=== PATIENT | female | born 1960 | race Caucasian/White ===

== ENCOUNTER 2016-08-26 15:34 | Emergency (ER) | payer OTHER ==
[~2016-08-26] VITALS: Ht 157.5 cm; Wt 61.2 kg
[~2016-08-26 15:34] MED LIST: NEXIUM 40MG40 MG PO
--- NOTE | 2016-08-26 17:01 | ED UPPER/LOWER EXTREMITY COMPL ---
History of Present Illness General Chief Complaint: Lower Extremity Problems Stated Complaint: RT FOOT SWELLING, NO KNOWN INJ. Source: patient Exam Limitations: no limitations Vital Signs & Intake/Output Vital Signs & Intake/Output Vital Signs Date Time Temp Pulse Resp B/P B/P Pulse O2 O2 Flow FiO2 Mean Ox Delivery Rate 08/26 1832 97.6 86 18 142/80 95 Room Air 08/26 1541 97.7 99 16 169/92 92 Room Air Allergies Coded Allergies: Quinolones (HIVES 08/26/16) Sulfa (Sulfonamide Antibiotics) (SKIN BURNING 08/26/16) Reconcile Medications Albuterol Sulfate (Proair Hfa) 90 MCG HFA.AER.AD 2 PUF INH 4XDAILY PRN COPD ( Reported) Budesonide (Pulmicort) 0.25 MG/2 ML AMPUL.NEB 1 Vial INH/WENDY BID COPD ( Reported) by nebulizer Triage Note: PT STATES HER RIGHT FOOT AND ANKLE STARTED TO SWELL ABOUT 1 WEEK AGO. PT DENIES INJURIES ANKLE WARM AND RED. Triage Nurses Notes Reviewed? yes Onset: Gradual Duration: getting worse Timing: recent history Severity: moderate Severity Numbers: 5 HPI: Patient is a 56-year-old female with past medical history of COPD, LUPUS - (SLE) in remission who presents emergency room with a 6 day history of gradual onset of right below the knee to the toes of swelling. Patient denies any mechanism of injury or trauma or erythema warmth or redness to the region. Denies any fever chills shortness of breath cough or hemoptysis chest pain. Denies any exhaustion is estrogen use or recent travel or recent surgery. DENIES any history of DVT or PE (BEBO FRANCISCO) Past History Travel History Traveled to [place] past 21 day No Medical History Any Pertinent Medical History? see below for history Neurological: LUPUS Respiratory: COPD Gastrointestinal: ACID REFLUX Surgical History Surgical History: non-contributory Psychosocial History What is your primary language Romansh Tobacco Use: Current Daily Use Daily Tobacco Use Amount/Type: => 5 Cigarettes daily ETOH Use: denies use Illicit Drug Use: denies illicit drug use Family History Hx Contributory? No (BEBO FRANCISCO) Review of Systems Review of Systems Constitutional: Reports: no symptoms. EENTM: Reports: no symptoms. Respiratory: Reports: no symptoms. Cardiovascular: Reports: see HPI, peripheral edema. Gastrointestinal/Abdominal: Reports: no symptoms. Genitourinary: Reports: no symptoms. Musculoskeletal: Reports: see HPI. Skin: Reports: no symptoms. Neurological/Psychological: Reports: no symptoms. Hematologic/Endocrine: Reports: no symptoms. Immunological: Reports: no symptoms. All Other Systems: Reviewed and Negative (BEBO FRANCISCO) Physical Exam Physical Exam General Appearance: no apparent distress, alert, comfortable Neurologic/Tendon: normal sensation, normal motor functions, normal tendon functions, responds to pain, no evidence tendon injury, no pulse deficit Skin: intact, normal color, warm/dry Comments: Well-developed well-nourished person in no acute distress HEENT: Normal EENT exam. Neck: Supple, no lymphadenopathy, normal range of motion without pain or tenderness Back: Nontender, no CVA tenderness. Cardiovascular: Regular rate and rhythms no murmurs rubs or gallops, normal JVP Respiratory: Chest nontender. No respiratory distress.breath sounds clear to auscultation bilaterally Abdomen: Soft, nontender nondistended, no appreciable organomegaly. Normal bowel sounds. No ascites Extremity: Right below the knees to the toes +2 edema no calf tenderness to palpation, normal and equal pulses. Right ankle no erythema no warmth no tenderness full active range of motion noted Neuro: Alert oriented x3, motor sensory normal, Skin: No appreciable rash on exposed skin, skin is warm and dry. Psych: Mood and affect is normal, memory and judgment is normal. (BEBO FRANCISCO) Progress Differential Diagnosis: arterial insufficiency, cellulitis, CHF, compartment syndrome, contusion, dislocation, DVT, fracture, gout, septic arthritis, sprain, tendon injury, LUPUS NEPHRITIS Plan of Care: Orders Procedure Date/time Status Durable Medical Equipment 08/26 183 Active URINALYSIS 08/26 1710 Complete COMPREHENSIVE METABOLIC PANEL 08/26 1709 Complete CBC WITHOUT DIFFERENTIAL 08/26 1709 Complete Laboratory Tests 08/26/16 172: Urine Color YEL, Urine Clarity CLEAR, Urine pH 6.0, Ur Specific [place] 1.010, Urine Protein TRACE H, Urine Ketones NEG, Urine Nitrite NEG, Urine Bilirubin NEG, Urine Urobilinogen 0.2, Ur Leukocyte Esterase TRACE H, Ur Microscopic SEDIMENT EXAMINED, Urine RBC RARE, Urine WBC 1-3 H, Ur Epithelial Cells FEW, Urine Bacteria FEW H, Urine Hemoglobin TRACE-LYSED, Urine Glucose NEG 05/19/17 1717: Anion Gap 9, Estimated GFR > 60, BUN/Creatinine Ratio 14.3, Glucose 84, Calcium 9.3, Total Bilirubin 0.7, AST 29, ALT 34, Alkaline Phosphatase 77, Total Protein 7.2, Albumin 4.1, Globulin 3.1, Albumin/Globulin Ratio 1.3, CBC w Diff NO MAN DIFF REQ, RBC 5.40, MCV 92.4, MCH 30.7, RDW 14.4, MPV 10.6 H, Gran % 64.6, Lymphocytes % 25.1, Monocytes % 8.9, Eosinophils % 1.0, Basophils % 0.4, Absolute Granulocytes 3.9, Absolute Lymphocytes 1.5, Absolute Monocytes 0.5, Absolute Eosinophils 0.1, Absolute Basophils 0, PUBS MCHC 33.2 At this time there is no physical exam findings for concerns of cellulitis or infection. Ultrasound was unremarkable for DVT. No proteinuria kidney function was within normal limits in which there are no concerns of nephrotic syndrome. Humberto wrap was applied to right lower leg preempt post neurovascular was intact. Patient was given copies of images and blood work. Patient denies any cardiovascular symptoms at this time. Patient was strongly advised to follow-up with discharged INSTRUCTIONS AND the plan and she will comply (BRANDEE MCKEE,BEBO) Diagnostic Imaging: Viewed by Me: Ultrasound. Radiology Impression: no acute abnormality, no fracture Comments: PATIENT: CLARA FIGUEROA PRESENT AGE: 56 PATIENT ACCOUNT NO: [id number] : 60 LOCATION: [facility] ORDERING PHYSICIAN: BEBO MCKEE SERVICE DATE: 08/26/16 EXAM TYPE: US - US-UNILATERAL VENOUS DOPPLER EXAMINATION: US TRIPLEX LOWER EXTREMITY, RIGHT CLINICAL INFORMATION: Right lower extremity edema and swelling. COMPARISON: None. TECHNIQUE: Color-flow triplex imaging with spectral analysis and compression Doppler were performed on the right lower extremity. FINDINGS: Respiratory variation, normal compression and augmented flow are noted throughout the left lower extremity. The visualized common femoral vein, proximal greater saphenous vein, femoral vein, profunda femoral vein, popliteal vein and visualized mid calf venous segments show no evidence of deep venous thrombosis. There is a 2.8 x 0.7 x 1.9 cm right popliteal fossa Ramírez's cyst. IMPRESSION: 1. No ultrasound evidence of deep venous thrombosis involving the lower extremity. 2. A right popliteal fossa Ramírez's cyst is seen. (BEBO FRANCISCO) Departure Departure Disposition: HOME OR SELF CARE Condition: Stable Clinical Impression Primary Impression: Leg edema, right Referrals: UNKNOWN (PCP/Family) Additional Instructions: As discussed begin to elevate THE foot for swelling. Begin to use the Humberto wrap provided to the emergency room for swelling. If symptoms worsen or if YOU develop any new concerning symptom return to the emergency room. Please provide your primary care doctor with copies of ultrasound and blood work and if symptoms still continue follow-up with your primary care doctor on Monday. Departure Forms: Customer Survey General Discharge Information (BEBO FRANCISCO) PA/MATERIALS MANAGEMENT SUPERVISOR Co-Sign Statement Statement: ED Attending supervision documentation- [] I saw and evaluated the patient. I have also reviewed all the pertinent lab results and diagnostic results. I agree with the findings and the plan of care as documented in the PA's/MATERIALS MANAGEMENT SUPERVISOR's documentation. [X] I have reviewed the ED Record and agree with the PA's/MATERIALS MANAGEMENT SUPERVISOR's documentation. [] Additions or exceptions (if any) to the PAs/MATERIALS MANAGEMENT SUPERVISOR's note and plan are summarized below: [] (MARCELLA CALLAHAN DO)
[2016-08-26] MEDS ORDERED: PULMICORT0.25 MG/3 INH/SOL (17:14)
[2016-08-26] MEDS ORDERED: PROAIR HFA8.5 GM INH (17:14)
--- NOTE | 2016-08-26 17:14 | ULTRASOUND REPORT ---
EXAMINATION: US TRIPLEX LOWER EXTREMITY, RIGHT CLINICAL INFORMATION: Right lower extremity edema and swelling. COMPARISON: None. TECHNIQUE: Color-flow triplex imaging with spectral analysis and compression Doppler were performed on the right lower extremity. FINDINGS: Respiratory variation, normal compression and augmented flow are noted throughout the left lower extremity. The visualized common femoral vein, proximal greater saphenous vein, femoral vein, profunda femoral vein, popliteal vein and visualized mid calf venous segments show no evidence of deep venous thrombosis. There is a 2.8 x 0.7 x 1.9 cm right popliteal fossa Ramírez's cyst. IMPRESSION: 1. No ultrasound evidence of deep venous thrombosis involving the lower extremity. 2. A right popliteal fossa Ramírez's cyst is seen.
[2016-08-26 17:40] LABS: ABSOLUTE BASOPHIL COUNT 0 /CUMM (0.0-0.2); ABSOLUTE EOSINOPHIL COUNT 0.1 /CUMM (0.0-0.7); ABSOLUTE GRANULOCYTE CT 3.9 /CUMM (1.4-6.5); ABSOLUTE LYMPH COUNT 1.5 /CUMM (1.2-3.4); ABSOLUTE MONOCYTE COUNT 0.5 /CUMM (0.10-0.60); BASOPHIL % 0.4 % (0.0-2.0); GRANULOCYTE % 64.6 % (42.2-75.2); HEMATOCRIT 49.9 % (37-47); MEAN CORPUSCULAR HGB 30.7 PG (27.0-31.0); MEAN CORPUSCULAR HGB CONC 33.2 G/DL (33.0-37.0); MEAN CORPUSCULAR VOLUME 92.4 FL (81.0-99.0); MEAN PLATELET VOLUME 10.6 FL (7.4-10.4); PLATELET COUNT 155 /CUMM (130-400); RBC DISTRIBUTION WIDTH 14.4 % (11.5-14.5)
[2016-08-26 18:32] VITALS: BP 142/80
== END 2016-08-26 18:52 ==
LOC: ERH 15:34
PROVIDERS: Physician Assistant
DX: R60.0 Localized edema (principal)
CPT/HCPCS: 81001

== ENCOUNTER 2016-10-01 18:27 | Inpatient (IN) | payer OTHER ==
[~2016-10-01] VITALS: Ht 157.5 cm; Wt 63.6 kg
[~2016-10-01 18:27] MED LIST changes: +PROAIR HFA8.5 GM INH; +PULMICORT0.25 MG/3 INH/SOL
--- NOTE | 2016-10-01 18:34 | NUR ---
C/O BILATERAL LOWER LEG REDNESS AND SWELLING X 3 WEEKS, SEEN HERE 2 WEEKS AGO, NEGATIVE US. FOLLOWED UP WITH PMD, WAS PUT ON KEFLEX. (SECOND COURSE) STATES LEGS FEEL WORSE. ALSO HAS A RUPTURED DEMARCO'S CYST (R KNEE).
--- NOTE | 2016-10-01 18:36 | NUR ---
C/O BILATERAL LOWER LEG REDNESS AND SWELLING X 3 WEEKS, SEEN HERE 2 WEEKS AGO, NEGATIVE US. FOLLOWED UP WITH PMD, WAS PUT ON KEFLEX. STATES LEGS FEEL WORSE. 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 PMH: COPD,
--- NOTE | 2016-10-01 18:50 | NUR ---
PT TO ROOM 6 .PT REFUSED TO CAHNGE INTO GOWN STATES SHE JUST WANTS HER LEGS CHECKED
[2016-10-01] MEDS ORDERED: ALPRAZOLAM0.25 M1 PO (19:21)
[2016-10-01] MEDS ORDERED: CEPHALEXIN500 M3 PO (19:21)
[2016-10-01] MEDS ORDERED: SPIRIVA RESPIMAT4 GM INH (19:21)
[2016-10-01] MEDS ORDERED: IPRATROPIU0.2 MG/1 M INH/SOL (19:22)
[2016-10-01] MEDS ORDERED: BUPROPION HCL150 M4 PO (19:22)
--- NOTE | 2016-10-01 19:24 | ED GENERAL ADULT ---
History of Present Illness General Chief Complaint: Lower Extremity Problems Stated Complaint: ?LLE CELLULITIS Source: patient, family Exam Limitations: no limitations Vital Signs & Intake/Output Vital Signs & Intake/Output Vital Signs Date Time Temp Pulse Resp B/P B/P Pulse O2 O2 Flow FiO2 Mean Ox Delivery Rate 10/01 2014 99 10/01 1953 98.4 106 20 142/92 85 Room Air 10/01 1837 98.2 123 22 168/94 88 Room Air Allergies Coded Allergies: Quinolones (HIVES 08/26/16) Sulfa (Sulfonamide Antibiotics) (SKIN BURNING 08/26/16) Reconcile Medications Albuterol Sulfate (Proair Hfa) 90 MCG HFA.AER.AD 2 PUF INH 4XDAILY PRN COPD ( Reported) Alprazolam 0.25 MG TABLET 1 TAB PO PRN ANXIETY (Reported) Budesonide (Pulmicort) 0.25 MG/2 ML AMPUL.NEB 1 Vial INH/WENDY PRN COPD ( Reported) by nebulizer Bupropion HCl (Bupropion HCl Sr) (Unknown Strength) TABLET.ER (Unknown Dose) UNKNOWN (Reported) Cephalexin 500 MG CAPSULE 1 CAP PO TID ANTIBIOTIC (Reported) Ipratropium Isabel 0.2 MG/ML (0.02 %) SOLUTION 1 Vial INH/WENDY PRN COPD ( Reported) Tiotropium Isabel (Spiriva Respimat) (Unknown Strength) MIST.INHAL (Unknown Dose) UNKNOWN (Reported) Triage Note: C/O BILATERAL LOWER LEG REDNESS AND SWELLING X 3 WEEKS, SEEN HERE 2 WEEKS AGO, NEGATIVE US. FOLLOWED UP WITH PMD, WAS PUT ON KEFLEX. STATES LEGS FEEL WORSE. Triage Nurses Notes Reviewed? yes Onset: Gradual Duration: week(s): Timing: recent history Severity: moderate Associated Symptoms: dyspnea HPI: 56yo female with hx of COPD not on home O2, anxiety, and lupus presents to ED c/ o bilateral leg swelling and redness. Patient states leg swelling and redness in right leg has be present x 1 month. She was treated with Keflex x 7 days twice since onset for cellulitis, she last finished the second course last week. She has had two venous ultrasounds of her right leg in the past month with no clots detected. She has a vascular referral however has not be able to see them yet. She has a hx of a ruptured chapman's cyst in the right knee. She has pain in her right knee and lower leg and states both legs feel tight and stiff. She notes swelling of her left lower leg x 3 days without erythema. She also has intermittent dyspnea significantly worse with exersion, she requires 3 pillows to sleep at night. She is a current smoker, 1 pack per day. Associated symptoms include chills, nausea, hematuria last week, dysuria starting today. She denies fevers, chest pain, palpitations, cough, hemoptysis, sore throat, urinary frequency. She was last seen in the ED here in August for right leg swelling, no erythema present at that time. (KAYLA EL PA-C) Past History Travel History Traveled to [place] past 21 day No Medical History Any Pertinent Medical History? see below for history Neurological: LUPUS EENT: NONE Cardiovascular: NONE Respiratory: COPD Gastrointestinal: ACID REFLUX Hepatic: NONE Renal: NONE Musculoskeletal: NONE Psychiatric: anxiety Endocrine: NONE Surgical History Surgical History: non-contributory Psychosocial History What is your primary language Syriac Tobacco Use: Current Daily Use Daily Tobacco Use Amount/Type: => 5 Cigarettes daily ETOH Use: denies use Family History Family History, If Any: BROTHER Relation not specified for: FH: lung cancer Hx Contributory? No (KAYLA EL PA-C) Review of Systems Review of Systems Constitutional: Reports: see HPI. EENTM: Reports: no symptoms. Respiratory: Reports: see HPI. Cardiovascular: Reports: see HPI. GI: Reports: see HPI. Genitourinary: Reports: see HPI. Musculoskeletal: Reports: see HPI. Skin: Reports: see HPI. Neurological/Psychological: Reports: no symptoms. Hematologic/Endocrine: Reports: no symptoms. Immunologic/Allergic: Reports: no symptoms. All Other Systems: Reviewed and Negative (KAYLA EL PA-C) Physical Exam Physical Exam General Appearance: well developed/nourished, no apparent distress, alert, awake Head: atraumatic, normal appearance Eyes: Bilateral: normal appearance, EOMI. Ears, Nose, Throat: hearing grossly normal Neck: normal inspection, supple, full range of motion Respiratory: diminished breath sounds in all lung valero Cardiovascular: tachycardia Gastrointestinal: normal bowel sounds, soft, non-tender Back: normal inspection, normal range of motion, erythematous macular rash on left upper back Extremities: normal capillary refill, calf tenderness, 3+ pitting edema right lower leg with warmth and erythema extending from right knee to right toes, tenderness with palpation, 1-2+ pitting edema of left lower leg, no erythema, no warmth Neurologic/Psych: awake, alert, oriented x 3, sensation intact Skin: intact, erathematous macular rash on left upper back, erythema, swelling, warmth, and tenderness right knee, calf, and foot Core Measures ACS in differential dx? Yes CVA/TIA Diagnosis: No Severe Sepsis Present: No Septic Shock Present: No (NIKKO GUPTA,KAYLA) Progress Differential Diagnoses I considered the following diagnoses in my evaluation of the patient: [DVT, cellulitis, stasis dermatitis, peripheral vascular disease, sepsis, ACS, PE, PNA , COPD exacerbation] Plan of Care: Orders Procedure Date/time Status Regular Diet 10/02 B Active Patient Data 10/01 2130 Active OXYGEN SETUP (GEN) 10/01 2104 Active Saline Lock 10/01 2104 Active Misc Message 10/01 2104 Active ED Holding Orders 10/01 2104 Active Admit to inpatient 10/01 2104 Active Vital Signs 10/01 2104 Active Activity/Ambulation 10/01 2104 Active Code Status 10/01 2104 Active XRY-PORTABLE CHEST XRAY 10/01 2045 Active Add-on Test (ER Only) 10/01 2036 Active EKG 10/02 2031 Active THYROID STIMULATING HORMONE 10/01 2002 Complete TROPONIN LEVEL 10/01 2002 Complete B-TYPE NATRIURETIC PEP (BNP) 10/01 2002 Complete COMPREHENSIVE METABOLIC PANEL 10/01 1950 Complete CBC WITHOUT DIFFERENTIAL 10/01 1950 Complete CULTURE,URINE 10/01 1925 Active URINALYSIS 10/01 192 Complete Intake & Output 10/01 1919 Active Laboratory Tests 10/01/16 2006: CBC w Diff NO MAN DIFF REQ, RBC 5.19, MCV 93.1, MCH 30.3, RDW 14.8 H, MPV 10.5 H, Gran % 70.4, Lymphocytes % 19.8 L, Monocytes % 8.3, Eosinophils % 1.1, Basophils % 0.4, Absolute Granulocytes 4.5, Absolute Lymphocytes 1.3, Absolute Monocytes 0.5, Absolute Eosinophils 0.1, Absolute Basophils 0, PUBS MCHC 32.5 L 10/01/16 2003: Anion Gap 8, Estimated GFR > 60, BUN/Creatinine Ratio 18.9, Glucose 82, Calcium 9.1, Total Bilirubin 0.4, AST 38 H, ALT 49, Alkaline Phosphatase 65, Troponin I < 0.01, Cuc-O-Upnrcovuwgz Pept 949 H, Total Protein 6.5, Albumin 3.6, Globulin 2.9, Albumin/Globulin Ratio 1.2, TSH 2.480 10/01/16 2000: TSH Cancelled 10/01/161939: Urine Color YEL, Urine Clarity CLEAR, Urine pH 6.0, Ur Specific [place] 1.025, Urine Protein 30 H, Urine Ketones NEG, Urine Nitrite NEG, Urine Bilirubin NEG, Urine Urobilinogen 0.2, Ur Leukocyte Esterase NEG, Ur Microscopic SEDIMENT EXAMINED, Urine RBC 1-3, Urine WBC 1-3 H, Ur Epithelial Cells MOD H, Urine Hemoglobin TRACE-INTACT, Urine Glucose NEG Microbiology 10/02 1939 URINE ROUT: Urine Culture - RECD The patient is refusing CXR because she does not want to know the results stating that her brother of lung CA. She was conseled on the reasons why the CXR was ordered for evaluation of her dyspnea, low O2 sats, and diminished breath sounds on exam. 20:25 Patient receiving duoneb treatment, O2 sat 91-92% on 5L via [place]. Patient is not on any home O2. Patient was discussed with Dr. Nova. IV antibiotics initiated for COPD exacerbation and cellulitis with failed outpatient PO abx. Patient now consents to CXR after further counseling. IV Lasix initiated given pedal edema. The patient is not able to lay back due to her dyspnea, must sit leaning forward. Patient will be admitted to telemitry for futher monitoring, continued oxygen therapy, IV antibiotics, repeat EKG and troponin. (KAYLA EL PA-C) Initial ED EKG: significant artifact as patient unable to lay flat due to her dyspnea, tachycardia with regular rhythm, p waves present (KAYLA EL PA-C) Departure Departure Time of Disposition: 2105 Disposition: STILL A PATIENT Condition: Stable Clinical Impression Primary Impression: COPD exacerbation Secondary Impressions: Cellulitis, Dyspnea, Pedal edema Referrals: UNKNOWN (PCP/Family) Departure Forms: Customer Survey General Discharge Information Admission Note Spoke With: MODESTA CASTILLO MD Documentation of Exam: Documentation of any treatments & extenuating circumstances including Concerns Regarding Discharge (functional status, medication knowledge or non-compliance, living conditions, etc.) that warrant an admission rather than observation: [ COPD exacerbation, failed outpaitient treatment of cellulitis, low O2 sat despite O2 therapy, not on home oxygen, will need telemetry monitoring, IV antibiotics, repeak EKG and troponin, premature discharge would be medically unsafe] (KAYLA EL PA-C) PA/DERMATOLOGY PHYSICIAN Co-Sign Statement Statement: ED Attending supervision documentation- [X] I saw and evaluated the patient. I have also reviewed all the pertinent lab results and diagnostic results. I agree with the findings and the plan of care as documented in the PA's/DERMATOLOGY PHYSICIAN's documentation. [X] I have reviewed the ED Record and agree with the PA's/DERMATOLOGY PHYSICIAN's documentation. [] Additions or exceptions (if any) to the PAs/DERMATOLOGY PHYSICIAN's note and plan are summarized below: [COPD or not on home O2 who continues to smoke presents with increasing redness to her right leg. Patient finished a course of Keflex and is currently on her second round. The leg is erythematous, warm to touch and blanches. There is no inguinal adenopathy. There is no tenderness to the erythema. Patient states that both her right and left leg are more swollen than normal. Patient had 2 ultrasounds on her right leg within the past month and both been negative for DVT. Patient also found to be hypoxic. The patient's O2 sats improved with 5 L nasal cannula. Patient's lung sounds are very diminished despite a DuoNeb. At this point the patient will be admitted. Patient being treated for COPD exacerbation as well as possible fluid overload. No evidence of a PE given 2 negative ultrasounds.] (ISRRAEL ABREU,OSWALDO Méndez) Critical Care Note Critical Care Note Critical Care Time: mins: (20) (KAYLA EL PA-C) DVT. Patient also found to be hypoxic. The patient's O2 sats improved with 5 L nasal cannula. Patient's lung sounds are very diminished despite a DuoNeb. At this point the patient will be admitted. Patient being treated for COPD exacerbation as well as possible fluid overload. No evidence of a PE given 2 negative ultrasounds.] (ISRRAEL ABREU,OSWALDO Méndez) Critical Care Note Critical Care Note Critical Care Time: mins: (20) (KAYLA EL PA-C)
--- NOTE | 2016-10-01 19:41 | NUR ---
URINE SENT TO LAB ([facility])
--- NOTE | 2016-10-01 19:43 | NUR ---
LEGS ARE SWOLLEN AND SLIGHTLY REDDENED. NO WEEPING OR DRAINAGE NOTED AT THIS TIME.
--- NOTE | 2016-10-01 19:52 | NUR ---
RESP CALLED FOR TX.
--- NOTE | 2016-10-01 20:05 | NUR ---
BLOOD DRAWN AND SENT TO LAB. SST,LAV,BLUE,FINN
[2016-10-01 20:10] LABS: ABSOLUTE BASOPHIL COUNT 0 /CUMM (0.0-0.2); ABSOLUTE EOSINOPHIL COUNT 0.1 /CUMM (0.0-0.7); ABSOLUTE GRANULOCYTE CT 4.5 /CUMM (1.4-6.5); ABSOLUTE LYMPH COUNT 1.3 /CUMM (1.2-3.4); ABSOLUTE MONOCYTE COUNT 0.5 /CUMM (0.10-0.60); BASOPHIL % 0.4 % (0.0-2.0); EOSINOPHIL % 1.1 % (0-5); GRANULOCYTE % 70.4 % (42.2-75.2); HEMATOCRIT 48.3 % (37-47); MEAN CORPUSCULAR HGB 30.3 PG (27.0-31.0); MEAN CORPUSCULAR HGB CONC 32.5 G/DL (33.0-37.0); MEAN CORPUSCULAR VOLUME 93.1 FL (81.0-99.0); MEAN PLATELET VOLUME 10.5 FL (7.4-10.4); PLATELET COUNT 145 /CUMM (130-400); RBC DISTRIBUTION WIDTH 14.8 % (11.5-14.5); RED BLOOD CELL CT 5.19 /CUMM (4.20-5.40); WHITE BLOOD CELL COUNT 6.4 /CUMM (4.8-10.8)
--- NOTE | 2016-10-01 22:01 | RADIOLOGY REPORT ---
EXAMINATION: XR CHEST PORTABLE CLINICAL INFORMATION: COPD exacerbation. Evaluate for pulmonary pathology. COMPARISON: Multiple priors, most recent available images are from a chest x-ray dated 12/06/2010. TECHNIQUE: Portable frontal view of the chest was obtained. FINDINGS: Bilateral coarse interstitial markings, not significantly changed. No focal airspace consolidation. No pleural effusion or pneumothorax. Stable cardiomediastinal silhouette. No acute osseous abnormality. IMPRESSION: Stable coarse interstitial markings. No focal airspace consolidation.
--- NOTE | 2016-10-01 22:44 | NUR ---
PT ASSIGNED TO #[id number]
[2016-10-02 01:25] VITALS: BP 138/78
--- NOTE | 2016-10-02 02:41 | History & Physical ---
PAUL LINARES 10/02/16 0239: General Information and HPI MD Statement: I have seen and personally examined CLARA FIGUEROA and documented this H&P. The patient is a 56 year old F who presented with a patient stated chief complaint of bilateral lower extremity swelling, shortness of breath. Source of Information: patient Exam Limitations: no limitations History of Present Illness: Ms Figueroa is a 56-year-old woman who was known to be in her usual state of health until 1 month ago. She has a past medical history of COPD(dx'ed 10 yr ago, not on any meds/supp oxygen). She came to [facility] with a chief concern of worsening lower extremity swelling x 1 wk. As per the patient, she started developing swelling in her bilateral lower extremities R>L, increasing redness 1 month; seen her PCP who prescribed her Keflex 7 days with no resolution of symptoms. No associated pain, tingling or numbness, or any discharge. Also reported fever associated with chills, but did not record any temperature. Reported on and off exertional shortness of breath. Also reported decreased activity at work. No chest pain, palpitations, orthopnea or PND. No lightheadedness or dizziness. Reported weight gain in the last few months. 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 Known smoker, 27-cyxa-nldx history, has been trying to quit (currently on bupropion), occasional use of alcohol. Sees RAFI Santos regularly. Has not seen Dr. Man in the last 10 yrs, after the diagnosis of COPD was made. Never had any low dose CT lung screening done recently. Allergies/Medications Allergies: Coded Allergies: Quinolones (HIVES 08/26/16) Sulfa (Sulfonamide Antibiotics) (SKIN BURNING 08/26/16) Home Med list Albuterol Sulfate (Proair Hfa) 90 MCG HFA.AER.AD 2 PUF INH 4XDAILY PRN COPD ( Reported) Alprazolam 0.25 MG TABLET 1 TAB PO PRN ANXIETY (Reported) Budesonide (Pulmicort) 0.25 MG/2 ML AMPUL.NEB 1 Vial INH/WENDY PRN COPD ( Reported) by nebulizer Bupropion HCl (Bupropion HCl Sr) (Unknown Strength) TABLET.ER (Unknown Dose) UNKNOWN (Reported) Cephalexin 500 MG CAPSULE 1 CAP PO TID ANTIBIOTIC (Reported) Ipratropium [place] 0.2 MG/ML (0.02 %) SOLUTION 1 Vial INH/WENDY PRN COPD ( Reported) Tiotropium [place] (Spiriva Respimat) (Unknown Strength) MIST.INHAL (Unknown Dose) UNKNOWN (Reported) Past History Travel History Traveled to [place] past 21 day No Medical History Blood Transfusion Hx: No Neurological: LUPUS EENT: NONE Cardiovascular: NONE Respiratory: COPD Gastrointestinal: ACID REFLUX Hepatic: NONE Renal: NONE Musculoskeletal: NONE Psychiatric: anxiety Endocrine: NONE Isolation History: Standard Surgical History Surgical History: non-contributory Past Family/Social History Family History Relations & Conditions if any BROTHER Relation not specified for: FH: lung cancer Psychosocial History Where do you live? Home Services at Home: None Smoking Status: Current Everyday Smoker ETOH Use: denies use Review of Systems Review of Systems Constitutional: Reports: see HPI, chills, fever. Denies: malaise, weakness. EENTM: Denies: visual changes. Cardiovascular: Reports: peripheral edema. Denies: chest pain, orthopena, palpitations. Respiratory: Denies: cough, orthopnea, short of breath, sputum production. GI: Denies: abdominal pain, melena, nausea, bloody stool. Genitourinary: Denies: discharge. Musculoskeletal: Denies: joint pain. Skin: Reports: change in skin color, erythema. Denies: lesions. Neurological/Psychological: Denies: anxiety, emotional problems. Hematologic/Endocrine: Denies: bruising, polyuria. Exam & Diagnostic Data Last 24 Hrs of Vital Signs/I&O Vital Signs Date Time Temp Pulse Resp B/P B/P Pulse O2 O2 Flow FiO2 Mean Ox Delivery Rate 10/02 0125 98.7 103 20 138/78 90 Nasal 3.0L Cannula 10/02 0019 93 Nasal 3.0L Cannula 10/01 2246 98.0 98 20 135/87 96 Nasal 3.0L Cannula 10/01 2014 99 10/01 1953 98.4 106 20 142/92 85 Room Air 10/01 1838 98.2 123 22 168/94 88 Room Air Intake & Output 10/02 0800 10/02 0000 10/01 1600 Intake Total Output Total Balance Patient 140 lb 140 lb Weight Weight Reported by Patient Reported by Patient Measurement Method Physical Exam General Appearance Alert, Oriented X3, Cooperative, No Acute Distress Skin No Breakdown Skin Temp/Moisture Exam: Warm/Dry Sepsis Skin Exam (color): Normal for Ethnicity HEENT Atraumatic, PERRLA, EOMI, Mucous Membr. moist/pink Neck Supple, No JVD, No thryomegaly, +2 Carotid Pulse wo Bruit Lymphatic Cervical nl Cardiovascular Regular Rate, Normal S1, Normal S2 Lungs decreased air entry bilaterally Abdomen Normal Bowel Sounds, Soft, No Tenderness, No Hepatospenomegaly Neurological Normal Speech, Strength at 5/5 X4 Ext, Normal Tone, Sensation Intact, Cranial Nerves 3-12 NL, Reflexes 2+ Extremities No Clubbing, No Cyanosis, pedal edema 2 + bilaterally Right lower extremity - erythema extending from the tip of toes to the knee. No ulcers Left lower extremity- erytheama extending from tips of toes to the ankle. No ulcers. Vascular Normal Pulses, Pulses Symmetrical Sepsis Peripheral Pulse Location: Dorsalis Pedis Sepsis Peripheral Pulse Exam: Normal Body Front and Back (Adult) 1) Bilateral pitting edema 2+ #1 right lower extremity-erythema extending from tips of toes up to the knee. No ulcers. #2 left lower extremity-erythema extending from toes up to ankle. No ulcers. Last 24 Hrs of Labs/Silverio: Laboratory Tests 10/01/162005: CBC w Diff NO MAN DIFF REQ, RBC 5.19, MCV 93.1, MCH 30.3, RDW 14.8 H, MPV 10.5 H, Gran % 70.4, Lymphocytes % 19.8 L, Monocytes % 8.3, Eosinophils % 1.1, Basophils % 0.4, Absolute Granulocytes 4.5, Absolute Lymphocytes 1.3, Absolute Monocytes 0.5, Absolute Eosinophils 0.1, Absolute Basophils 0, PUBS MCHC 32.5 L 10/01/16 2003: Anion Gap 8, Estimated GFR > 60, BUN/Creatinine Ratio 18.9, Glucose 82, Calcium 9.1, Total Bilirubin 0.4, AST 38 H, ALT 49, Alkaline Phosphatase 65, Troponin I < 0.01, Huk-L-Qovonhpifzb Pept 949 H, Total Protein 6.5, Albumin 3.6, Globulin 2.9, Albumin/Globulin Ratio 1.2, TSH 2.480 10/01/161999: TSH Cancelled 10/01/160: Urine Color YEL, Urine Clarity CLEAR, Urine pH 6.0, Ur Specific [place] 1.025, Urine Protein 30 H, Urine Ketones NEG, Urine Nitrite NEG, Urine Bilirubin NEG, Urine Urobilinogen 0.2, Ur Leukocyte Esterase NEG, Ur Microscopic SEDIMENT EXAMINED, Urine RBC 1-3, Urine WBC 1-3 H, Ur Epithelial Cells MOD H, Urine Hemoglobin TRACE-INTACT, Urine Glucose NEG Microbiology 10/02 226 LOWER RESP: Respiratory Culture - ORD 10/02 226 LOWER RESP: Gram Stain - ORD 10/02 226 BLOOD: Blood Culture - ORD 10/02 226 BLOOD: Blood Culture - ORD 10/02 1939 URINE ROUT: Urine Culture - RECD Diagnostic Data EKG Results Normal sinus rhythm, tachycardia, normal axis, no ST-T wave changes. CXR Results Stable coarse interstitial markings. No focal airspace consolidation. Assessment/Plan Assessment: She is a middle-aged woman, with [id number] smoking history and COPD is being evaluated for worsening lower extremity edema, erythema and shortness of breath likely due to CHF. At the time of admission, vitals-temperature 98.2, pulse rate 123 (improved to 98), blood pressure 168/94 (improved to 138/78), 88% on room air (at the time of arrival in the ED, which improved to 90% on 3 L oxygen). Lab findings indicated no leukocytosis, hemoglobin 15.7, platelets 145. Electrolytes-slightly elevated potassium 5.2, elevated bicarbonate 32 (likely metabolic compensation of respiratory acidosis secondary to COPD), normal renal function-serum creatinine 0.9. AST 38, ALT 49, proBNP slightly elevated 949. Radiological findings-chest x-ray did not reveal any pulmonary edema. EKG revealed normal sinus rhythm, tachycardia, normal axis with no ST-T wave changes. Differential diagnosis: #1 congestive heart failure #2 lower extremity cellulitis #3 right heart failure secondary to pulmonary hypertension #4 COPD exacerbation(acute hypoxic respiratory failure) Below is the problem list and plan: #1 lower extremity swelling and erythema-likely due to fluid overload from CHF and/or cellulitis. Treated with Keflex in the recent past with no resolution of symptoms, and could be treated with ceftriaxone (to cover for Streptococcus). If the symptoms worsen or no relief in any symptoms, can change to Unasyn or consider treatment for MRSA. She was given intravenous furosemide in the ED. Continue IV Lasix once daily, with strict ins and outs. Echocardiogram to assess for ventricular function. Serial echocardiograms and cardiac enzymes. CHF diet. #2 COPD exacerbation-likely contributing to worsening in heart function. May benefit from by mouth prednisone. Pulmonary follow-up at the time of discharge. Evaluate the need for supplemental oxygen at the time of discharge. Wean off oxygen as tolerated. #3 cellulitis-monitor the response to antibiotics. Reassess the class of antibiotics based on response. #4 DVT prophylaxis-Lovenox. As Ranked By This Provider Problem List: 1. Pedal edema 2. Cellulitis 3. COPD exacerbation Core Measures/Miscellaneous Acute Coronary Syndrome ACS Diagnosis: No Cerebrovascular Accident CVA/TIA Diagnosis: No Congestive Heart Failure CHF Diagnosis: Yes Date of most recent Echo: 10/02/16 (ordered for today) LASHAE/ARB for EF <40%: No Comment: based on EF findings, will ord VTE (View Protocol) VTE Risk Factors: Acute medical illness, Age > 40 [facility] d/t: No contraindications No VTE Pharm Prophylaxis d/t: No contraindications VTE Diagnosis: No VTE Type: NONE VTE Confirmed by (Test): NONE Sepsis (View Protocol) Severe Sepsis Present: No Septic Shock Septic Shock Present: No Miscellaneous Documentation Attending Case Discussed With: MODESTA CASTILLO MD Primary Care Physician: UNKNOWN Patient sees these Specialists Dr. Man Level of Patient Care: Telemetry MODESTA CASTILLO 10/02/16 0324: Attending Review Statement Attending Statement Attending Statement: examined this patient, discuss w/resident/PA/SOLE MOLDING MACHINE OPERATOR, agreed w/resident/PA/SOLE MOLDING MACHINE OPERATOR, discussed with family, reviewed EMR data (avail), reviewed images, amended to note Attending Assessment/Plan: CC: Right lower extremity redness PMH: COPD, ?Lupus Patient came to ER for worsening bilateral lower extremity swelling and redness more on right side as compared to left. Patient noticed this approximately one month back, she waited at home for 3 weeks before seeing her doctor. PCP prescribed Keflex for 7 days which she completed but not much relief in swelling and redness, she was prescribed another course of Keflex 2 days back, still her symptoms were not getting better so she came to ER. She also has Rmaírez's cyst on right side. She was in ER 1 month back when she was investigated with DVT Doppler which showed the cyst. Upon further questioning, She endorses intermittent dyspnea on exertion, chronic cough but they are not bothersome for her. She had subjective fever and chills at home last week. Current smoker trying to quit smoking. Vitals: T max 98.4, heart rate 123 at presentation improved to 98, RR 22, blood pressure 168/94, saturating 85% on room air improved to 96 with 3 L nasal cannula On exam: A O 3, cooperative, moderate distress, neck supple, JVD elevated, no lymphadenopathy, mucosa dry, no pharyngeal congestion, no sinus tenderness, no focal neurological deficit, bilateral lower extremity pitting edema, right lower extremity is red, warm to touch, tender, tense up to knee, left lower extremity mild redness around ankle. No obvious ulcers or rash or injury on the legs. CVS: S1-S2, RRR. RS: Markedly decreased air entry bilaterally. Abdomen: Soft, NT, ND, bowel sounds present. Labs: CBC, BMP, LFT, troponin unremarkable. ProBNP 949 UA: protein, WBC 1-3 CXR: Stable coarse interstitial markings. No focal airspace consolidation. A and P 56-year-old female with a past medical history significant for COPD, current smoker, noncompliant with her treatment at home presented for bilateral lower extremity edema, redness, right more than left, subjective fever 1 week back and completed 1 week of Keflex without much improvement. On examination she has elevated JVD, markedly decreased air entry bilaterally, hypoxic at arrival improved with the nasal cannula oxygen, accessory muscles in use, bilateral lower extremity pitting edema and mild cellulitis right lower extremity. She does not carry diagnosis of heart failure, not on any Lasix at home. For now we will continue with IV ceftriaxone which cover COPD exacerbation as well as lower extremity cellulitis, but if cellulitis not improving may consider changing to vancomycin for community-acquired MRSA as she was not improving with Keflex by mouth outpatient. Patient is also concerned about Ramírez's cyst on the right side. Initially patient refused chest x-ray for dyspnea because she was worried about cancer as her brother of lung cancer. + Acute hypoxic respiratory failure secondary to COPD exacerbation + Right lower extremity cellulitis + COPD exacerbation + Suspected heart failure - Admit to telemetry - Continuous telemetry monitoring - Serial troponin and EKG - 2-D echocardiogram in a.m. - Lasix 40 mg IV daily - Strict I's and O's - Bilateral lower extremity Doppler for DVT - Scheduled and as necessary albuterol and ipratropium nebulization - Prednisone 40 mg by mouth daily for 5 days - IV ceftriaxone 1 g daily - Cardiology consult in a.m. - DVT prophylaxis with Lovenox - Adequate pain control CANDY PHAM 10/02/16 0609: Resident Review Statement Resident Statement: examined this patient, discussed with international logistics analyst, agreed with international logistics analyst Other Findings: Ms. Figueroa is a 56 year old female w a PMH of COPD and cellulitis [recently completed an outpatient course of Keflex] who presents to [facility] emergency department for bilateral lower extremity swelling and redness associated with some pain. She states that last month she was treated for cellulitis with Keflex by her primary care physician, treatment finished Monday. It did not improve so she was started on another course of Keflex started Monday this last week. Again, no improvement was noted and she was worried and came to the emergency department. She has had multiple negative ultrasounds for deep vein thrombosis however she did have a Ramírez's cyst. At the time of interview the patient offers no significant complaints except for her lower extremity swelling and redness. She denied any dyspnea or dyspnea on exertion. She denied any fever or chills. She denies any palpitations, chest pain, abdominal pain, nausea/vomiting. The remainder of the review of systems as dictated above. Vitals, 98.4, heart rate was tachycardic, 123 initially which improved to the 90s. Respiratory rate 22, blood pressure 160/94. She was saturating 85% on room air in the emergency department and was placed on oxygen via nasal cannula at which point her saturation improved. Physical exam as dictated above with note of jugular venous distention, 5 cm above the sternal angle. No rales or rhonchi appreciated on auscultation, however decreased air entry diffusely. No wheezes noted. Heart exam unremarkable. Abdominal exam unremarkable. Evaluation of the extremities reveals bilateral lower extremity edema to the knees, +2. There is bilateral erythema noted however the right side is significant worse than the left. Labs as dictated above, unremarkable, however her BNP was slightly elevated at 949. Chest x-ray revealed coarse stable interstitial markings. Problem list/assessment and plan Acute hypoxic respiratory failure * Potentially multifactorial she does have significant past medical history of COPD and is not always compliant with her medications, as well as a potential new heart failure/strain. * In spite of her slight elevation of BNP which is not really significant, she does have significant clinical picture of fluid overload, and her saturations and oxygen requirement did improve with IV Lasix * She does have risk factors for coronary artery disease including smoking, and potentially undiagnosed hypertension. * We will admit to telemetry and evaluate for potential new heart failure with an echocardiogram as well as rule out, and will also consult cardiology. * We will repeat her vitals and blood pressure measurements and consider starting her on an antihypertensive medication. Consider hydrochlorothiazide given her fluid overload and the fact that she is a woman. * As her respiratory failure is multifactorial, we will also treat her for COPD exacerbation with TRC/nebs as well as 40 mg of prednisone for 5 days. * She previously follow up with Dr. Man in 12 years ago, consider pulmonary evaluation or referral on discharge. Cellulitis * She is considered a failed outpatient cellulitis course and we will start 1 g of ceftriaxone daily. If she does not improve, consider switching to clindamycin, Bactrim or vancomycin to cover for community-acquired MRSA. * We will also obtain blood cultures, as well as sputum culture for potential underlying pulmonary infection. Full code Lovenox for DVT prophylaxis Pain pathway Regular diet
--- NOTE | 2016-10-02 03:26 | Admission Certification ---
Admission Certification Certification Statement - As attending physician, I certify that at the time of - admission, based on clinical presentation, severity of - symptoms, need for further diagnostic testing and - therapeutic interventions, and risk of adverse outcomes - without in-hospital treatment, in my clinical assessment, - this patient requires an acute hospital stay for a minimum - of two nights or longer. I have also considered psychsocial - factors such as support system, advanced age, financial - issues, cognitive issues, and failed out-patient treatments, - past re-admission history, safety of patient, and lack of - compliance as applicable. Specific rationale supporting this admission is: COPD exacerbation, right lower extremity cellulitis
[2016-10-02 08:13] VITALS: BP 122/80
[2016-10-02 08:36] LABS: ABSOLUTE BASOPHIL COUNT 0 /CUMM (0.0-0.2); ABSOLUTE EOSINOPHIL COUNT 0 /CUMM (0.0-0.7); ABSOLUTE GRANULOCYTE CT 3.7 /CUMM (1.4-6.5); ABSOLUTE LYMPH COUNT 0.4 /CUMM (1.2-3.4); ABSOLUTE MONOCYTE COUNT 0 /CUMM (0.10-0.60); BASOPHIL % 0 % (0.0-2.0); EOSINOPHIL % 0.1 % (0-5); HEMATOCRIT 49.5 % (37-47); MEAN CORPUSCULAR HGB 30.5 PG (27.0-31.0); MEAN CORPUSCULAR HGB CONC 32.9 G/DL (33.0-37.0); MEAN CORPUSCULAR VOLUME 92.9 FL (81.0-99.0); MEAN PLATELET VOLUME 11.9 FL (7.4-10.4); PLATELET COUNT 148 /CUMM (130-400); RBC DISTRIBUTION WIDTH 14.8 % (11.5-14.5); RED BLOOD CELL CT 5.32 /CUMM (4.20-5.40); WHITE BLOOD CELL COUNT 4.1 /CUMM (4.8-10.8)
[2016-10-02 10:01] LABS: GRANULOCYTE % 90.4 % (42.2-75.2)
--- NOTE | 2016-10-02 11:25 | PN- Att Addend ---
Attending Addendum Attending Brief Note "56-year-old female with a past medical history significant for COPD, current smoker, noncompliant with her treatment at home presented for bilateral lower extremity edema, redness, right more than left, subjective fever 1 week back and completed 1 week of Keflex without much improvement. On examination she has elevated JVD, markedly decreased air entry bilaterally, hypoxic at arrival improved with the nasal cannula oxygen, accessory muscles in use, bilateral lower extremity pitting edema and mild cellulitis right lower extremity. She does not carry diagnosis of heart failure, not on any Lasix at home. For now we will continue with IV ceftriaxone which cover COPD exacerbation as well as lower extremity cellulitis, but if cellulitis not improving may consider changing to vancomycin for community-acquired MRSA as she was not improving with Keflex by mouth outpatient. Patient is also concerned about Ramírez's cyst on the right side. Initially patient refused chest x-ray for dyspnea because she was worried about cancer as her brother of lung cancer." ASSESSMENT 1. Acute hypoxic respiratory failure secondary to COPD exacerbation 2. Right lower extremity cellulitis 3. COPD exacerbation 4. Elevated BNP. PLAN - Admit to telemetry, Continuous telemetry monitoring - Serial troponin and EKG negative, f/u 2-D echocardiogram. - Lasix 40 mg IV daily, Strict I's and O's - Bilateral lower extremity Doppler for DVT f/u. - Prednisone 40mg, BD prn, i/v abx. oxygen supplementation 3l. - Cardiology consult placed. - DVT prophylaxis with Lovenox - Adequate pain control
--- NOTE | 2016-10-02 14:59 | Cons- Cardiology ---
General Information and HPI Consulting Request Date of Consult: 10/02/16 Requested By: MODESTA CASTILLO MD Reason for Consult: Erythematous, painful, swollen right lower extremity. Source of Information: patient, old records History of Present Illness: Ms. Uzma Roe is a 56-year-old female with a long-standing history of heavy tobacco use, COPD, and a strong family history for coronary artery disease with her mother having a myocardial infarction and stent deployment at age 55 years who presented with a painful, erythematous, and swollen right lower extremity. The right lower extremity signs/symptoms began approximately 5 weeks ago and as a result she sought medical attention at a local walk-in clinic who referred her to the ED where an ultrasound was performed on 08/26/2016 that revealed no evidence of DVT, but a popliteal Ramírez's cyst. Several weeks later she was seen by her primary care physician (Christen Kim M.D.) and was started on cephalexin for suspected cellulitis. This didn't improve the situation and as such she was referred back to the ED. Allergies/Medications Allergies: Coded Allergies: Quinolones (HIVES 08/26/16) Sulfa (Sulfonamide Antibiotics) (SKIN BURNING 08/26/16) Home Med List: Albuterol Sulfate (Proair Hfa) 90 MCG HFA.AER.AD 2 PUF INH 4XDAILY PRN COPD ( Reported) Alprazolam 0.25 MG TABLET 1 TAB PO PRN ANXIETY (Reported) Budesonide (Pulmicort) 0.25 MG/2 ML AMPUL.NEB 1 Vial INH/WENDY PRN COPD ( Reported) by nebulizer Bupropion HCl (Bupropion HCl Sr) (Unknown Strength) TABLET.ER (Unknown Dose) UNKNOWN (Reported) Cephalexin 500 MG CAPSULE 1 CAP PO TID ANTIBIOTIC (Reported) Ipratropium [place] 0.2 MG/ML (0.02 %) SOLUTION 1 Vial INH/WENDY PRN COPD ( Reported) Tiotropium [place] (Spiriva Respimat) (Unknown Strength) MIST.INHAL (Unknown Dose) UNKNOWN (Reported) Review of Systems Review of Systems: A 14 point system review was obtained and was noncontributory, other than as above. Past History Travel History Traveled to [place] past 21 day No Medical History Blood Transfusion Hx: No Neurological: LUPUS EENT: NONE Cardiovascular: NONE Respiratory: COPD Gastrointestinal: ACID REFLUX Hepatic: NONE Renal: NONE Musculoskeletal: NONE Psychiatric: anxiety Endocrine: NONE Surgical History Surgical History: non-contributory Family History Relations & Conditions If Any: BROTHER Relation not specified for: FH: lung cancer Psychosocial History Where Do You Live? Home Services at Home: None Smoking Status: Current Everyday Smoker ETOH Use: denies use Exam & Diagnostic Data Vital Signs and I&O Vital Signs Date Time Temp Pulse Resp B/P B/P Pulse O2 O2 Flow FiO2 Mean Ox Delivery Rate 10/02 1024 Nasal 3.0L Cannula 10/02 1024 93 Nasal 3.0L Cannula 10/02 0813 98.0 91 20 122/80 91 Nasal 3.0L Cannula 10/02 0800 91 Nasal 3.0L Cannula 10/02 0125 98.7 103 20 138/78 90 Nasal 3.0L Cannula 10/02 0019 93 Nasal 3.0L Cannula 10/01 2246 98.0 98 20 135/87 96 Nasal 3.0L Cannula 10/01 2014 99 10/01 1954 98.4 106 20 142/92 85 Room Air 10/01 1838 98.2 123 22 168/94 88 Room Air Intake & Output 10/02 1600 10/02 0800 10/02 0000 10/01 1600 10/01 0800 10/01 0000 Intake Total 480 600 Output Total 900 Balance -420 600 Intake, Oral 480 600 Output, Urine 900 Patient 140 lb 140 lb Weight Weight Reported by Patient Reported by Patient Measurement Method Physical Exam: Well-developed, well-nourished middle-aged female in no acute distress with nasal oxygen in place. Vital signs: See above. HEENT: Normocephalic, atraumatic, EOMI, moist membranes. Neck: No JVD, no bruits. Lungs: Decreased breath sounds bilaterally otherwise clear. Heart: S1, S2 normal murmur, gallop, or rub appreciated. PMI fifth ICS at [facility]. Abdomen: Soft, nontender, positive bowel sounds. Extremities: 2+ right lower extremity edema, painful to touch, erythematous. Labs/Silverio Results: Laboratory Tests 10/02 Chemistry Sodium (137 - 145 mmol/L) 137 Potassium (3.5 - 5.1 mmol/L) 4.4 Chloride (98 - 107 mmol/L) 96 L Carbon Dioxide (22 - 30 mmol/L) 33 H Anion Gap (5 - 16) 8 BUN (7 - 17 mg/dL) 16 Creatinine (0.5 - 1.0 mg/dL) 0.7 Estimated GFR (>60 ml/min) > 60 BUN/Creatinine Ratio (7 - 25 %) 22.9 Troponin I (< 0.11 ng/ml) < 0.01 Hematology CBC w Diff NO MAN DIFF REQ NO MAN DIFF REQ WBC (4.8 - 10.8 /CUMM) 4.1 L 6.4 RBC (4.20 - 5.40 /CUMM) 5.32 5.19 Hgb (12.0 - 16.0 G/DL) 16.3 H 15.7 Hct (37 - 47 %) 49.5 H 48.3 H MCV (81.0 - 99.0 FL) 92.9 93.1 MCH (27.0 - 31.0 PG) 30.5 30.3 RDW (11.5 - 14.5 %) 14.8 H 14.8 H Plt Count (130 - 400 /CUMM) 148 145 MPV (7.4 - 10.4 FL) 11.9 H 10.5 H Gran % (42.2 - 75.2 %) 90.4 H 70.4 Lymphocytes % (20.5 - 51.1 %) 9.0 L 19.8 L Monocytes % (1.7 - 9.3 %) 0.5 L 8.3 Eosinophils % (0 - 5 %) 0.1 1.1 Basophils % (0.0 - 2.0 %) 0 L 0.4 Absolute Granulocytes (1.4 - 6.5 /CUMM) 3.7 4.5 Absolute Lymphocytes (1.2 - 3.4 /CUMM) 0.4 L 1.3 Absolute Monocytes (0.10 - 0.60 /CUMM) 0 L 0.5 Absolute Eosinophils (0.0 - 0.7 /CUMM) 0 0.1 Absolute Basophils (0.0 - 0.2 /CUMM) 0 0 PUBS MCHC (33.0 - 37.0 G/DL) 32.9 L 32.5 L 10/01 Chemistry Sodium (137 - 145 mmol/L) 138 Potassium (3.5 - 5.1 mmol/L) 5.2 H Chloride (98 - 107 mmol/L) 99 Carbon Dioxide (22 - 30 mmol/L) 32 H Anion Gap (5 - 16) 8 BUN (7 - 17 mg/dL) 17 Creatinine (0.5 - 1.0 mg/dL) 0.9 Estimated GFR (>60 ml/min) > 60 BUN/Creatinine Ratio (7 - 25 %) 18.9 Glucose (65 - 99 mg/dL) 82 Calcium (8.4 - 10.2 mg/dL) 9.1 Total Bilirubin (0.2 - 1.3 mg/dL) 0.4 AST (14 - 36 U/L) 38 H ALT (9 - 52 U/L) 49 Alkaline Phosphatase (<127 U/L) 65 Troponin I (< 0.11 ng/ml) < 0.01 Dmi-S-Vkkccbsrvtp Pept (<125 pg/mL) 949 H Total Protein (6.3 - 8.2 g/dL) 6.5 Albumin (3.5 - 5.0 g/dL) 3.6 Globulin (1.9 - 4.2 gm/dL) 2.9 Albumin/Globulin Ratio (1.1 - 2.2 %) 1.2 TSH (0.270 - 4.200 uIU/mL) 2.480 Cancelled Urines Urine Color (YEL,AMB,STR) YEL Urine Clarity (CLEAR) CLEAR Urine pH (5.0 - 8.0) 6.0 Ur Specific [place] (1.001 - 1.035) 1.025 Urine Protein (NEG,<30 MG/DL) 30 H Urine Ketones (NEG) NEG Urine Nitrite (NEG) NEG Urine Bilirubin (NEG) NEG Urine Urobilinogen (0.1 - 1.0 EU/dl) 0.2 Ur Leukocyte Esterase (NEG) NEG Ur Microscopic SEDIMENT EXAMINED Urine RBC (0 - 5 /HPF) 1-3 Urine WBC (0 - 2 /HPF) 1-3 H Ur Epithelial Cells (NONE,FEW) MOD H Urine Hemoglobin (NEG) TRACE-INTACT Urine Glucose (N MG/DL) NEG Diagnostic Data EKG Results (10/02/2016) sinus rhythm, biatrial abnormalities, borderline rightward axis, consider left ventricular hypertrophy, nondiagnostic T-wave abnormalities in diffuse leads, and an S1,Q3,T3 pattern. CXR Results (10/01/2016): Stable coarse interstitial markings. No focal airspace consolidation. Assessment/Plan Assessment/Plan [id number] w/ hx heavy tob use, COPD, "anxiety", and a strong FH for CAD who presented with a painful, erythematous, and swollen RLE w/ negative U/S for DVT approximately 5 weeks ago, but continued symptoms and was found to be hypoxemic and tachycardic in the ED had an electrocardiogram that revealed sinus tachycardia and an S1Q3T3 pattern. Naturally, the concern is for a right lower extremity DVT plus/minus pulmonary embolism. NT-PRO BNP is mildly elevated for her age (50-75 years, less than 900 pg/mL) with potential false positives from pulmonary embolism, critical illness, renal failure, atrial fibrillation, myocarditis, and sepsis. Recommendations: * Continue telemetry admission, follow-up troponins, repeat ECG. * Bilateral lower extremity ultrasound. * D-dimer. * Consider CT angiogram of chest. * Consider IV heparin. * Echocardiogram to assess LV/RV function, estimated PA systolic pressure, etc. * DVT prophylaxis. Consult Acknowledgment - Thank you for your consult request.
--- NOTE | 2016-10-02 17:18 | ULTRASOUND REPORT ---
EXAMINATION: US TRIPLEX OF LOWER EXTREMITIES, BILATERAL CLINICAL INFORMATION: Bilateral cysts lower extremity swelling, edema, inflammation, skin changes. Suspected DVT. COMPARISON: None TECHNIQUE: Color-flow triplex imaging with spectral analysis and compression Doppler were performed on the lower extremities. FINDINGS: Respiratory variation, normal compression and augmented flow are noted throughout the lower extremities. The visualized common femoral vein, superficial femoral vein, profunda femoral vein, popliteal vein and midcalf peroneal and posterior tibial venous segments show no evidence of deep venous thrombosis. There is a 4.2 x 0.9 x 1.9 cm fluid collection identified within the right popliteal fossa consistent with a Ramírez's cyst. There is a 4.6 x 2.0 x 2.4 cm fluid collection identified within the left popliteal fossa, consistent with a Ramírez's cyst. IMPRESSION: 1. No evidence of deep venous thrombosis involving both lower extremities. 2. 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
[2016-10-02 17:43] VITALS: BP 132/80
--- NOTE | 2016-10-02 18:18 | CT SCAN REPORT ---
EXAMINATION: CT ANGIOGRAM CHEST WITH AND WITHOUT CONTRAST (CT PULMONARY ANGIOGRAM FOR PE) CLINICAL INFORMATION: Rule out PE. Acute hypoxia and dyspnea, tachycardia. COMPARISON: CT of the chest without contrast on 12/27/2013. TECHNIQUE: Prior to contrast administration, noncontrast localization images were obtained. Subsequently, multidetector volumetric imaging was performed from the thoracic inlet to below the diaphragms following the administration of 95 mL Optiray 350 intravenous contrast. No contrast reaction reported. Sagittal, coronal, and MIP oblique sagittal reformatted images were obtained on the CT workstation, uploaded to PACS, and reviewed. Total exam dose-length product 183.98 mGy-cm. FINDINGS: QUALITY OF STUDY/CONTRAST BOLUS: Satisfactory PULMONARY ARTERIES: No central or segmental pulmonary emboli. THORACIC AORTA: No aneurysm or dissection. LUNG: Linear pleural parenchymal opacities are noted at right upper lobe anteromedially and also at both lung bases, similar to prior study, consistent with stable presumed pleuroparenchymal scar. Mild emphysematous changes are present predominantly at both upper lobes of the lung with superimposed nonspecific cystic changes especially at left upper lobe, unchanged since 12/27/2013. Interval development of a new focal ill-defined central airspace opacity is noted at right upper lobe (see the skelton images), may represent pneumonia. Follow-up images to document resolution is recommended. The tracheobronchial tree appeared patent. PLEURA: No pleural effusion or pneumothorax. MEDIASTINUM: Normal heart size. No pericardial effusion. No hilar or mediastinal lymphadenopathy. No evidence of septal bowing or right heart strain. Atherosclerotic disease including coronary artery calcifications are present. CHEST WALL/AXILLA: No axillary or internal mammary lymphadenopathy. OSSEOUS STRUCTURES: No acute or suspicious osseous abnormality. UPPER ABDOMEN: Unremarkable. No reflux of contrast into the hepatic veins to suggest elevated right heart pressures. IMPRESSION: 1. No CT evidence of pulmonary embolism is present. 2. Likely pleuroparenchymal scar related changes are noted at right upper lobe and both lung bases, similar to prior study dated 12/27/2013. 3. Interval development of a focal airspace opacity is noted within the central part of the right upper lobe of the lung, may represent pneumonia. Follow-up imaging to document resolution is recommended. VTE: Negative.
--- NOTE | 2016-10-02 20:38 | Event Note ---
Event Note Event Note: Guaiac test was done to check with the patient is bleeding per rectally/from GI source before starting IV heparin. It was NEGATIVE. IV heparin was started until the results of CT angiogram to rule out pulmonary embolism was obtained.
[2016-10-02 23:42] VITALS: BP 128/88
--- NOTE | 2016-10-03 07:21 | PN- Housestaff ---
ROBIN ABREU,MANUEL 10/03/16 0720: Subjective Follow-up For: COPD Lower extremity swelling Tele-Events Since Last Visit: NSR/ST HR 85-103 No events Subjective: Patient seen and examined. She is seen sitting upright in bed resting comfortably. She appears to be in no acute distress. She reports that her lower extremity swelling looks dramatically improved from when she first came in and that the redness has gotten a lot better. Her right leg is still mildly painful. She has persistent shortness of breath and feels comfortably on the current 3.0L via nasal cannula. Otherwise she denies any fever, chills, chest pain, palpitations, nausea, vomiting, diarrhea. Review of Systems Constitutional: Reports: see HPI. Objective Last 24 Hrs of Vital Signs/I&O Vital Signs Date Time Temp Pulse Resp B/P B/P Pulse O2 O2 Flow FiO2 Mean Ox Delivery Rate 10/03 2120 93 Nasal 2.0L Cannula 10/03 1619 98.0 91 18 120/80 91 Nasal Cannula 10/03 1600 91 Nasal 2.0L Cannula 10/03 1408 91 Nasal 3.0L Cannula 10/03 1300 19 91 Nasal 2.0L Cannula 10/03 1200 20 88 Nasal 1.0L Cannula 10/03 1104 20 93 Nasal 1.0L Cannula 10/03 0819 98.0 84 18 122/70 93 Nasal Cannula 10/03 0800 93 Nasal 3.0L Cannula 10/03 0000 Nasal 3.0L Cannula 10/02 2342 97.8 86 18 128/88 96 Nasal Cannula Intake & Output 10/03 1600 10/03 0800 10/03 0000 Intake Total 120 620 Output Total 300 400 Balance -300 -280 620 Intake, IV 20 Intake, Oral 120 600 Output, Urine 300 400 Patient 64.637 kg 64.013 kg Weight Weight Chair scale Standing Scale Measurement Method Physical Exam General Appearance: Alert, Oriented X3, Cooperative, No Acute Distress Other Physical Findings: General- well developed, well nourished middle aged woman in no acute distress HEENT- NCAT, PERRL, EOMI, anicteric sclera, nasal cannula in place Chest- S1, S2 w/o m/g/r; RRR Lung- decreased airflow bilaterally without crackles, scant expiratory wheezing Abdomen- Soft, nontender, nondistended, bowel sounds intact Neuro- Awake and alert, CN II-XII grossly intact Ext- normal pulses, no cyanosis/clubbing/edema Current Medications: Current Medications Sig/Rossy Start time Last Medication Dose Route Stop Time Status Admin Acetaminophen 650 MG Q6P PRN 10/02 0230 AC PO Albuterol Sulfate 3 ML Q4H PRN 10/02 1030 AC 10/03 INH 2120 Albuterol Sulfate 2 PUF Q6P PRN 10/02 0230 AC 10/02 INH 2105 Alprazolam 0.25 MG DAILY PRN 10/02 0230 AC 10/02 PO 10/09 0229 2104 Azithromycin 500 MG DAILY 10/03 1150 AC 10/03 PO 1343 Bisacodyl 5 MG DAILY NEEDED PRN 10/03 0830 AC PO Budesonide/ 2 PUF BID 10/02 1000 AC 10/03 Formoterol Fumarate INH 2216 Bupropion HCl 150 MG BID 10/02 1000 AC 10/03 PO 2215 Ceftriaxone Sodium 1,000 MG Q24H 10/02 2115 AC 10/03 IV 2216 Docusate Sodium 100 MG DAILY 10/03 1000 AC 10/03 PO 1101 Furosemide 40 MG DAILY 10/02 1000 DC 10/02 IV 0912 Guaifenesin 600 MG Q12 10/02 2200 AC 10/03 PO 2215 Heparin Sodium 5,000 UNIT Q8 10/02 2200 AC 10/03 (Porcine) SC 2215 Ibuprofen 600 MG Q6P PRN 10/02 0230 AC PO Ketorolac 15 MG Q6P PRN 10/02 0230 DC Tromethamine IV Nicotine 14 MG DAILY 10/03 1134 AC 10/03 TOP 1312 Nicotine 21 MG DAILY 10/02 1000 DC 10/02 TOP 0757 Patient Medication 1 ED .STK-MED ONE 10/03 1401 DC Teaching ED 10/03 1402 Polyethylene Glycol 17 GM DAILY 10/03 1000 AC PO Prednisone 40 MG DAILY 10/02 1000 AC 10/03 PO 1059 Senna/Docusate Sodium 2 TAB DAILY 10/03 1000 AC 10/03 PO 1059 Tiotropium [place] 1 PUF DAILY 10/02 1000 AC 10/03 INH 1100 Last 24 Hrs of Lab/Silverio Results Last 24 Hrs of Labs/Mics: Laboratory Tests 10/03/16 1200: Troponin I Cancelled 10/03/16 0712: Anion Gap 3 L, Estimated GFR > 60, BUN/Creatinine Ratio 20.0, Troponin I < 0.01 , CBC w Diff NO MAN DIFF REQ, RBC 5.28, MCV 94.7, MCH 30.4, RDW 14.7 H, MPV 11.4 H, Gran % 73.9, Lymphocytes % 17.2 L, Monocytes % 7.4, Eosinophils % 1.0, Basophils % 0.5, Absolute Granulocytes 6.9 H, Absolute Lymphocytes 1.6, Absolute Monocytes 0.7 H, Absolute Eosinophils 0.1, Absolute Basophils 0, PUBS MCHC 32.1 L 10/02/16 2355: APTT Cancelled Assessment/Plan Assessment: 56 year old current everyday smoker with multiple medical problems significant for COPD not on home oxygen, '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 Man more than 10 years ago but lost to follow up reportedly due to insurance issues. Patient reports taking a week duration of Keflex for her lower extremity swelling/redness without improvement. Patient was saturating 88% on room air upon initial evaluation with dramatically decreased air entry. CXR demonstrated stable coarse interstitial markings without focal airspace consolidation. Patient was started of intravenous Ceftriaxone and oral steroids and admitted to the telemetry floor for further evaluation. Bilateral lower extremity doppler and CTA were negative for pulmonary embolism. Cardiology/Pulmonology consults were placed, recommendations pending. -Telemetry -Supplemental oxygen, goal >92%, taper as tolerated -TRC with nebs PRN -Ceftriaxone 1g IV Daily -Azithromycin 500mg PO Daily -Prednisone 40mg PO Daily Taper -Nicotine 14mg Patch Daily -Guaifenesin 600mg PO Q12H -Spiriva/Symbicort -Cardiology consult -Pulmonology consult Pain Plan-Acetaminophen/Toradol Bowel Regimen-Senna/Colace/Miralax Diet-Regular Diet DVT PPx-subcutaneous heparin Code Status-FULL CODE Problem List: 1. COPD exacerbation Pain Ratin Pain Location: None Pain Goal: Remain pain free Pain Plan: See assessment Tomorrow's Labs & Rationales: BEP D'OSPINA MD,JIMMY 10/03/16 1413: Attending MD Review Statement Attending Statement Attending MD Statement: examined this patient, discuss w/resident/PA/STUDIO ARTIST, agreed w/resident/PA/STUDIO ARTIST, reviewed EMR data (avail), discussed with nursing, discussed with case mgmt Attending Assessment/Plan: 56-year-old female past medical history of COPD and emphysema still smoking up until admission was here with an acute COPD exacerbation with the CT chest showing a right upper lobe opacity suggestive of a pneumonia. At this point we have her on by mouth steroids, TRC with nebs and will broaden antibiotic coverage to ceftriaxone and azithromycin. There is no evidence of lower extremity cellulitis, I think she was just swollen and red but not truly cellulitic. Her echo is pending but given that the bicarbonate is going up and she's developing this metabolic alkalosis I will stop the Lasix at this point. Slowly taper off the oxygen, she is requesting Dr. Bonilla to see her for a pulmonary consult and will follow closely. Tobacco cessation counseled at length.
[2016-10-03 08:19] VITALS: BP 122/70
--- NOTE | 2016-10-03 08:25 | PN- Student ---
THAI KENYON 10/03/16 0823: Subjective Subjective: Overnight events: SR 85-93 Pt. is sitting in bed comfortably, in no apparent acute distress, and eating breakfast. She states she is breathing well on 3L of oxygen and does not experience SOB. She has a nonproductive cough, but denies W[place]ATT, lightheadedness, dizziness, numbness, or tingling. She states she is motivated to quit smoking. She was put on Wellbutrin last night to help with smoking cessation and states, she is tolerating it, but she is experiencing some nausea. She is tolerating her meals and denies any vomiting. She states that her legs looks improved and that she is "able to see my ankles again." States she has absolutely no pain in her lower extremities and is ambulating. ROS: Denies palpitations, chest pain, abdominal pain, dysuria, and oligouria. Objective Objective: VS: Temp 98.0, HR 84, BP 122/70, RR 18, O2 93% 3L General: Calm, slightly irritable. Affect is appropriate Neuro: CN 2-12 grossly intact CV: RRR, S1 and S2 normal. Apical HR=88. 2+ bilateral radial pulses. No pulse deficit. Pulm: Diminished posterior breath sounds in the middle and lower lobes. Clear breath sounds in the anterior lobes. GI: Normal bowel sounds in all four quadrants. Soft, nondistended. Mild epigastric tenderness upon deep palpation. LE: +1 pitting, right pedal and tibial edema. Right lower leg and dorsal foot erythema. Trace edema on the left leg. DP and PT pulses +2 bilaterally. Results Results: Laboratory Tests 10/03/16 0712: Sodium Pending, Potassium Pending, Chloride Pending, Carbon Dioxide Pending, Anion Gap Pending, BUN Pending, Creatinine Pending, BUN/Creatinine Ratio Pending , Troponin I Pending, CBC w Diff Pending, WBC Pending, RBC Pending, Hgb Pending, Hct Pending, MCV Pending, MCH Pending, RDW Pending, Plt Count Pending, MPV Pending, PUBS MCHC Pending 10/02/16 2355: APTT Cancelled 10/02/16 1934: Troponin I < 0.01 10/02/16 0610: Anion Gap 8, Estimated GFR > 60, BUN/Creatinine Ratio 22.9, Troponin I < 0.01, CBC w Diff NO MAN DIFF REQ, RBC 5.32, MCV 92.9, MCH 30.5, RDW 14.8 H, MPV 11.9 H, Gran % 90.4 H, Lymphocytes % 9.0 L, Monocytes % 0.5 L, Eosinophils % 0.1, Basophils % 0 L, Absolute Granulocytes 3.7, Absolute Lymphocytes 0.4 L, Absolute Monocytes 0 L, Absolute Eosinophils 0, Absolute Basophils 0, PUBS MCHC 32.9 L 10/01/16 2006: CBC w Diff NO MAN DIFF REQ, RBC 5.19, MCV 93.1, MCH 30.3, RDW 14.8 H, MPV 10.5 H, Gran % 70.4, Lymphocytes % 19.8 L, Monocytes % 8.3, Eosinophils % 1.1, Basophils % 0.4, Absolute Granulocytes 4.5, Absolute Lymphocytes 1.3, Absolute Monocytes 0.5, Absolute Eosinophils 0.1, Absolute Basophils 0, PUBS MCHC 32.5 L 10/01/16 2003: Anion Gap 8, Estimated GFR > 60, BUN/Creatinine Ratio 18.9, Glucose 82, Calcium 9.1, Total Bilirubin 0.4, AST 38 H, ALT 49, Alkaline Phosphatase 65, Troponin I < 0.01, Uih-H-Wgxjhngyriy Pept 949 H, Total Protein 6.5, Albumin 3.6, Globulin 2.9, Albumin/Globulin Ratio 1.2, TSH 2.480 10/01/161999: TSH Cancelled 10/01/161939: Urine Color YEL, Urine Clarity CLEAR, Urine pH 6.0, Ur Specific [place] 1.025, Urine Protein 30 H, Urine Ketones NEG, Urine Nitrite NEG, Urine Bilirubin NEG, Urine Urobilinogen 0.2, Ur Leukocyte Esterase NEG, Ur Microscopic SEDIMENT EXAMINED, Urine RBC 1-3, Urine WBC 1-3 H, Ur Epithelial Cells MOD H, Urine Hemoglobin TRACE-INTACT, Urine Glucose NEG Microbiology 10/02 610 BLOOD: Blood Culture - RECD 10/02 609 BLOOD: Blood Culture - RECD 10/02 226 LOWER RESP: Respiratory Culture - COLB 10/02 226 LOWER RESP: Gram Stain - COLB 10/02 1939 URINE ROUT: Urine Culture - RES Assessment/Plan Assessment: Pt. is a 56 yo woman with a history of smoking, COPD without home oxygen, anxiety, and lupus presenting to the ED with bilateral edema, right leg erythema , tachycardia, exertional dyspnea, and hypoxemia. Pt was in her usual state of health until 1 month ago when she was diagnosed with right lower leg cellulitis and was given two courses of Keflex by her PCP. One week prior to admission, her right leg progressively worsened and experienced subjective low grade fevers, chills, and 10/10 pain tightness of the right leg that awoken her at night. Hypoxemia: COPD exacerbation vs PE vs pneumonia. On admission her VS Temp 98.2, HR 123, BP 168/94, O2 88% on RA. She was mildly hypercapnic, but ED states she was in no acute distress. She received duoneb tx and 3L NC, which improved her O2 to 91-92%. HR decreased to 86-103 and BP decreased (122-138/78-88) after oxygen and respiratory therapy. Considering this patient's extensive, smoking hx , dyspnea on exertion, negative CXR, and hx of COPD, this patient may be experiencing a COPD exacerbation. The pt. was also experiencing palpitations and EKG showed S1Q3T3 pattern, which are suggestive of PE, but CTA show no evidence of pulmonary embolism so this is less likely. It is possible that this patient could have an underlying pneumonia. She has nonproductive cough and CTA showed right upper lobe focal airspace opacity, which could be suggestive of pneumonia. We will broaden her antibiotic therapy to cover pathogens for CAP. * Admit to telemetry floor * Strict I's and O's * Daily Weights * Titrate O2; O2 sat must be >94% * Prednisone 40mg PO * Tiotropium Inhaler daily * Albuterol 3mL Inhaler q4H PRN * Budesonide/Formoterol Fumarate Inh BID * Guaifenesin 500mg PO q12h * Azithromycin 500 mg PO QD * Ceftriaxone IV QD * Wellbutrin 150mg PO BID for smoking cessation Leg swelling/DVT prophylaxis: CHF vs cellulitis vs DVT. On admission, the pt had tachycardia, hypertension, and mildly elevated pro-B-FANCY WIRE DRAWER, which is suggestive of CHF. We will need to order an ECHO to assess cardiac function. Cellulitis is less likely because the pt denies any injury or skin abrasians, hx of DM, drainage, and WBC was within normal limits. Since the pt had asymmetric bilateral edema, a doppler was ordered and it was negative for DVT, so this diagnosis is less likely. * Hold Lasix 40mg IV QD due to increase in bicarb * Ibuprofen 600mg q6h PO PRN for pain * Heparin for DVT prophylaxis * Cardiology consult * Bilateral lower extremity Doppler for DVT: negative * Serial troponin: negative * Serial EKG: sinus rhythm, atrial abnormalities, right axis, left ventricular hypertrophy, and an S1,Q3,T3 pattern. * Echocardiogram pending * BEP, trend kidney function and electrolytes * CBC to monitor for infection Constipation: Has not had a bowel movement for 2 days and request a bowel regimen * Senokot S QD PO * Colace QD PO * Miralax QD PO Cutaneous Lupus: Pt. has not seen the dental detail representative since August 2005. A call was made to Dr. Coelho's office and stated that she had negative ROBERTO and dsDNA antibodies. 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
[2016-10-03 08:38] LABS: ABSOLUTE BASOPHIL COUNT 0 /CUMM (0.0-0.2); ABSOLUTE EOSINOPHIL COUNT 0.1 /CUMM (0.0-0.7); ABSOLUTE GRANULOCYTE CT 6.9 /CUMM (1.4-6.5); ABSOLUTE LYMPH COUNT 1.6 /CUMM (1.2-3.4); ABSOLUTE MONOCYTE COUNT 0.7 /CUMM (0.10-0.60); BASOPHIL % 0.5 % (0.0-2.0); GRANULOCYTE % 73.9 % (42.2-75.2); MEAN CORPUSCULAR HGB 30.4 PG (27.0-31.0); MEAN CORPUSCULAR HGB CONC 32.1 G/DL (33.0-37.0); MEAN CORPUSCULAR VOLUME 94.7 FL (81.0-99.0); MEAN PLATELET VOLUME 11.4 FL (7.4-10.4); PLATELET COUNT 148 /CUMM (130-400); RBC DISTRIBUTION WIDTH 14.7 % (11.5-14.5); RED BLOOD CELL CT 5.28 /CUMM (4.20-5.40)
[2016-10-03 08:42] LABS: WHITE BLOOD CELL COUNT 9.3 /CUMM (4.8-10.8)
[2016-10-03 16:19] VITALS: BP 120/80
[2016-10-03 23:33] VITALS: BP 126/76
--- NOTE | 2016-10-04 07:12 | PN- Housestaff ---
Subjective Follow-up For: Acute Hypoxic Respiratory Failure COPD Lower extremity swelling Tele-Events Since Last Visit: Sinus Bradycardia 1st degree AVB No events Subjective: Patient seen and examined. She is seen sitting upright in bed resting comfortably maintained on supplemental oxygen via nasal cannula. She appears to be in no acute distress. She reports feeling well and that her breathing has improved. Her lower extremity swelling has improved and that her right leg looks less red. Otherwise she indu any fever, chills, chest pain, cough, nausea, vomiting. Review of Systems Constitutional: Reports: see HPI. Objective Last 24 Hrs of Vital Signs/I&O Vital Signs Date Time Temp Pulse Resp B/P B/P Pulse O2 O2 Flow FiO2 Mean Ox Delivery Rate 10/04 0717 97.9 88 20 138/82 93 Nasal Cannula 10/04 0000 92 Nasal 2.0L Cannula 10/03 2333 97.9 87 20 126/76 94 Nasal 2.0L Cannula 10/03 2120 93 Nasal 2.0L Cannula 10/03 1619 98.0 91 18 120/80 91 Nasal Cannula 10/03 1600 91 Nasal 2.0L Cannula 10/03 1408 91 Nasal 3.0L Cannula 10/03 1300 19 91 Nasal 2.0L Cannula 10/03 1200 20 88 Nasal 1.0L Cannula 10/03 1104 20 93 Nasal 1.0L Cannula 10/03 0819 98.0 84 18 122/70 93 Nasal Cannula Intake & Output 10/04 1600 10/04 0800 10/04 0000 Intake Total 600 Output Total Balance 600 Intake, Oral 600 Physical Exam General Appearance: Alert, Oriented X3, Cooperative, No Acute Distress Other Physical Findings: General- well developed, well nourished middle aged woman in no acute distress HEENT- NCAT, PERRL, EOMI, anicteric sclera, nasal cannula in place Chest- S1, S2 w/o m/g/r; RRR Lung- decreased airflow bilaterally without crackles, scant expiratory wheezing Abdomen- Soft, nontender, nondistended, bowel sounds intact Neuro- Awake and alert, CN II-XII grossly intact Ext- normal pulses, no cyanosis/clubbing/edema Current Medications: Current Medications Sig/Rossy Start time Last Medication Dose Route Stop Time Status Admin Acetaminophen 650 MG Q6P PRN 10/02 0230 AC PO Albuterol Sulfate 3 ML Q4H PRN 10/02 1030 AC 10/03 INH 2120 Albuterol Sulfate 2 PUF Q6P PRN 10/02 0230 AC 10/02 INH 2105 Alprazolam 0.25 MG DAILY PRN 10/02 0230 AC 10/02 PO 10/09 0229 2104 Azithromycin 500 MG DAILY 10/03 1150 AC 10/03 PO 1343 Bisacodyl 5 MG DAILY NEEDED PRN 10/03 0830 AC PO Budesonide/ 2 PUF BID 10/02 1000 AC 10/03 Formoterol Fumarate INH 2216 Bupropion HCl 150 MG BID 10/02 1000 AC 10/03 PO 2215 Ceftriaxone Sodium 1,000 MG Q24H 10/02 2115 AC 10/03 IV 2216 Docusate Sodium 100 MG DAILY 10/03 1000 AC 10/03 PO 1101 Furosemide 40 MG DAILY 10/02 1000 DC 10/02 IV 0912 Guaifenesin 600 MG Q12 10/02 2200 AC 10/03 PO 2215 Heparin Sodium 5,000 UNIT Q8 10/02 2200 AC 10/03 (Porcine) SC 2215 Ibuprofen 600 MG Q6P PRN 10/02 0230 AC PO Ketorolac 15 MG Q6P PRN 10/02 0230 DC Tromethamine IV Nicotine 14 MG DAILY 10/03 1134 AC 10/03 TOP 1312 Nicotine 21 MG DAILY 10/02 1000 GA 10/02 TOP 0757 Patient Medication 1 ED .STK-MED ONE 10/03 1401 GA Teaching ED 10/03 1402 Polyethylene Glycol 17 GM DAILY 10/03 1000 AC PO Prednisone 40 MG DAILY 10/02 1000 AC 10/03 PO 1059 Senna/Docusate Sodium 2 TAB DAILY 10/03 1000 AC 10/03 PO 1059 Tiotropium [place] 1 PUF DAILY 10/02 1000 AC 10/03 INH 1100 Last 24 Hrs of Lab/Silverio Results Last 24 Hrs of Labs/Mics: Laboratory Tests 10/04/16 0640: Anion Gap 6, Estimated GFR > 60, BUN/Creatinine Ratio 21.4 10/03/16 1200: Troponin I Cancelled Assessment/Plan Assessment: 56 year old current everyday smoker with multiple medical problems significant for COPD not on home oxygen, '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 Man more than 10 years ago but lost to follow up reportedly due to insurance issues. Patient reports taking a week duration of Keflex for her lower extremity swelling/redness without improvement. Patient was saturating 88% on room air upon initial evaluation with dramatically decreased air entry. CXR demonstrated stable coarse interstitial markings without focal airspace consolidation. Patient was started of intravenous Ceftriaxone and oral steroids and admitted to the telemetry floor for further evaluation. Bilateral lower extremity doppler and CTA were negative for pulmonary embolism. Cardiology/Pulmonology consults were placed. Azithromycin was added to her regimen due to her persistent hypoxia. -Telemetry -Supplemental oxygen, goal >92%, taper as tolerated -TRC with nebs PRN -Ceftriaxone 1g IV Daily -Azithromycin 500mg PO Daily -Prednisone 40mg PO Daily Taper -Nicotine 14mg Patch Daily -Guaifenesin 600mg PO Q12H -Spiriva/Symbicort -Cardiology consult -Pulmonology consult Pain Plan-Acetaminophen/Toradol Bowel Regimen-Senna/Colace/Miralax Diet-Regular Diet DVT PPx-subcutaneous heparin Code Status-FULL CODE Problem List: 1. COPD exacerbation 2. Cellulitis Pain Ratin Pain Location: None Pain Goal: Remain pain free Pain Plan: See assessment Tomorrow's Labs & Rationales: None
[2016-10-04 07:17] VITALS: BP 138/82
--- NOTE | 2016-10-04 07:22 | PN- Student ---
THAI KENYON 10/04/16 0717: Subjective Subjective: Pt. is laying in the bed comfortably on 2L NC and in no apparent acute distress. States that she she feels dry, especially since starting mucinex. She states she still feels "a little jittery" but she has felt this way throughout her admission and attributes it to the prednisone. She denies any shortness of breath, chest pain, or palpitation. She is still coughing and is now producing sputum. She does not know what color. She states she had no overnight events and does not notice any symptoms after starting azithromycin. She states that her breathing has improved and her legs are less red and swollen since admission. Pt. states that her nausea has resolved. She is tolerating her meals well. She had her bowel movement this morning. ROS: Denies any pain, vomiting, abd pain, diarrhea, constipation, dysuria, oligouria, numbness, tingling. Objective Objective: VS: Temp 97.9, HR 88, RR 20, BP 132/82, O2 93% 2L NC PE General: Calm, cooperative. In no apparent distress Neuro: CN 2-12 grossly intact CV: RRR, S1 and S2 normal, no mumurs, rubs or gallops. Pulm: Diminished breath sounds in the lower lobes bilaterally. RML crackles GI: Normal bowel sounds throughout. Soft, nondistended, nontender LE: +1 Edema in the right lower leg and ankle, Trace edema in the left lower leg. 2+ DP and PT pulses bilaterally Results Results: Laboratory Tests 10/04/16 0640: Sodium Pending, Potassium Pending, Chloride Pending, Carbon Dioxide Pending, Anion Gap Pending, BUN Pending, Creatinine Pending, BUN/Creatinine Ratio Pending 10/03/16 1200: Troponin I Cancelled 10/03/16 0712: Anion Gap 3 L, Estimated GFR > 60, BUN/Creatinine Ratio 20.0, Troponin I < 0.01 , CBC w Diff NO MAN DIFF REQ, RBC 5.28, MCV 94.7, MCH 30.4, RDW 14.7 H, MPV 11.4 H, Gran % 73.9, Lymphocytes % 17.2 L, Monocytes % 7.4, Eosinophils % 1.0, Basophils % 0.5, Absolute Granulocytes 6.9 H, Absolute Lymphocytes 1.6, Absolute Monocytes 0.7 H, Absolute Eosinophils 0.1, Absolute Basophils 0, PUBS MCHC 32.1 L 10/02/165: APTT Cancelled 10/02/16 1934: Troponin I < 0.01 10/02/1610: Anion Gap 8, Estimated GFR > 60, BUN/Creatinine Ratio 22.9, Troponin I < 0.01, CBC w Diff NO MAN DIFF REQ, RBC 5.32, MCV 92.9, MCH 30.5, RDW 14.8 H, MPV 11.9 H, Gran % 90.4 H, Lymphocytes % 9.0 L, Monocytes % 0.5 L, Eosinophils % 0.1, Basophils % 0 L, Absolute Granulocytes 3.7, Absolute Lymphocytes 0.4 L, Absolute Monocytes 0 L, Absolute Eosinophils 0, Absolute Basophils 0, PUBS MCHC 32.9 L 10/01/16 2006: CBC w Diff NO MAN DIFF REQ, RBC 5.19, MCV 93.1, MCH 30.3, RDW 14.8 H, MPV 10.5 H, Gran % 70.4, Lymphocytes % 19.8 L, Monocytes % 8.3, Eosinophils % 1.1, Basophils % 0.4, Absolute Granulocytes 4.5, Absolute Lymphocytes 1.3, Absolute Monocytes 0.5, Absolute Eosinophils 0.1, Absolute Basophils 0, PUBS MCHC 32.5 L 10/01/16 2003: Anion Gap 8, Estimated GFR > 60, BUN/Creatinine Ratio 18.9, Glucose 82, Calcium 9.1, Total Bilirubin 0.4, AST 38 H, ALT 49, Alkaline Phosphatase 65, Troponin I < 0.01, Evt-V-Fxckhyjszad Pept 949 H, Total Protein 6.5, Albumin 3.6, Globulin 2.9, Albumin/Globulin Ratio 1.2, TSH 2.480 10/01/161999: TSH Cancelled 10/01/160: Urine Color YEL, Urine Clarity CLEAR, Urine pH 6.0, Ur Specific [place] 1.025, Urine Protein 30 H, Urine Ketones NEG, Urine Nitrite NEG, Urine Bilirubin NEG, Urine Urobilinogen 0.2, Ur Leukocyte Esterase NEG, Ur Microscopic SEDIMENT EXAMINED, Urine RBC 1-3, Urine WBC 1-3 H, Ur Epithelial Cells MOD H, Urine Hemoglobin TRACE-INTACT, Urine Glucose NEG Microbiology 10/02 0611 BLOOD: Blood Culture - RES 10/02 609 BLOOD: Blood Culture - RES 10/02 226 LOWER RESP: Respiratory Culture - CAN Cancelled: SPECIMEN NOT RECEIVED IN LABORATORY 10/02 226 LOWER RESP: Gram Stain - CAN Cancelled: SPECIMEN NOT RECEIVED IN LABORATORY 10/02 1939 URINE ROUT: Urine Culture - COMP Assessment/Plan Assessment: Pt. is a 56 yo woman with a history of smoking, COPD without home oxygen, anxiety, and lupus presenting to the ED with bilateral edema, right leg erythema , tachycardia, exertional dyspnea, and hypoxemia. Pt was in her usual state of health until 1 month ago when she was diagnosed with right lower leg cellulitis and was given two courses of Keflex by her PCP. One week prior to admission, her right leg progressively worsened and experienced subjective low grade fevers, chills, and 10/10 pain tightness of the right leg that awoken her at night. Hypoxemia: COPD exacerbation vs PE vs pneumonia. On admission her VS Temp 98.2, HR 123, BP 168/94, O2 88% on RA. She was mildly hypercapnic, but ED states she was in no acute distress. She received duoneb tx and 3L NC, which improved her O2 to 91-92%. HR decreased to 86-103 and BP decreased (122-138/78-88) after oxygen and respiratory therapy. Considering this patient's extensive, smoking hx , dyspnea on exertion, negative CXR, and hx of COPD, this patient may be experiencing a COPD exacerbation. The pt. was also experiencing palpitations and EKG showed S1Q3T3 pattern, which are suggestive of PE, but CTA show no evidence of pulmonary embolism so this is less likely. It is possible that this patient could have an underlying pneumonia. She has nonproductive cough and CTA showed right upper lobe focal airspace opacity, which could be suggestive of pneumonia. We will broaden her antibiotic therapy to cover pathogens for CAP. We titrated her O2 and she saturated at 88% on RA. She is saturating between 91-94% on 2L. * Admit to telemetry floor: hemodynamically stable, d/c telemetry * Strict I's and O's * Daily Weights * Titrate O2; O2 sat >92% * Prednisone 40mg PO * Tiotropium Inhaler daily * Albuterol 3mL Inhaler q4H PRN * Budesonide/Formoterol Fumarate Inh BID * Guaifenesin 500mg PO q12h * Azithromycin 500 mg PO QD * Ceftriaxone IV QD * Wellbutrin 150mg PO BID for smoking cessation * Pulmonology consult * Pulmonology Referral upon discharge * Possible discharge tomorrow Leg swelling/DVT prophylaxis: CHF vs cellulitis vs DVT. On admission, the pt had tachycardia, hypertension, and mildly elevated pro-B-DATA ABSTRACTOR, which is suggestive of CHF. We will need to order an ECHO to assess cardiac function. Cellulitis is less likely because the pt denies any injury or skin abrasians, hx of DM, drainage, and WBC was within normal limits. Since the pt had asymmetric bilateral edema, a doppler was ordered and it was negative for DVT, so this diagnosis is less likely. * Hold Lasix 40mg IV QD due to increase in bicarb * Ibuprofen 600mg q6h PO PRN for pain * Heparin for DVT prophylaxis * Cardiology consult * Bilateral lower extremity Doppler for DVT: negative * Serial troponin: negative * Serial EKG: sinus rhythm, atrial abnormalities, right axis, left ventricular hypertrophy, and an S1,Q3,T3 pattern. * Echocardiogram pending * BEP, trend kidney function and electrolytes Constipation: Resolved. * Senokot S QD PO * Colace QD PO * Miralax QD PO Cutaneous Lupus: Pt. has not seen the heating worker since August 2005. A call was made to Dr. Coelho's office and stated that she had negative ROBERTO and dsDNA antibodies. 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
--- NOTE | 2016-10-04 10:37 | Cons- Pulmonary ---
General Information and HPI Consulting Request Date of Consult: 10/04/16 Requested By: Dr. Kam Reason for Consult: COPD Source of Information: patient Exam Limitations: no limitations History of Present Illness: 56 year old woman. Consultation for COPD and CAP management. Pt has a history of tobacco dependence and stopped smoking on admission with intention to quit. History of COPD, not on o2, has seen Dr. Man a decade ago. No PFTs recently. Has had sporadic nebulized treatments and no consistent COPD care. She presented for a RLE swelling that is being worked up by the primary team without a DVT. She feels better with that respect. Given her O2 requirements a CTA was performed showing a RUL change consistent with CAP. She has been started on ceftriaxone and zithromax. She is afebrile without leukocytosis and no phlegm at this time. Her hgb/hct is slighly elevated. Her CO2 is also elevated from 42 to now 35. Her o2 requirements are currently 1LNC. Spiriva and Symbicort were started. No CP, no hemoptysis, no n/v/d/c, no kaufman, no weight changes. Allergies/Medications Allergies: Coded Allergies: Quinolones (HIVES 08/26/16) Sulfa (Sulfonamide Antibiotics) (SKIN BURNING 08/26/16) Home Med List: Albuterol Sulfate (Proair Hfa) 90 MCG HFA.AER.AD 2 PUF INH 4XDAILY PRN COPD ( Reported) Alprazolam 0.25 MG TABLET 1 TAB PO PRN ANXIETY (Reported) Budesonide (Pulmicort) 0.25 MG/2 ML AMPUL.NEB 1 Vial INH/WENDY PRN COPD ( Reported) by nebulizer Bupropion HCl (Bupropion HCl Sr) (Unknown Strength) TABLET.ER (Unknown Dose) UNKNOWN (Reported) Cephalexin 500 MG CAPSULE 1 CAP PO TID ANTIBIOTIC (Reported) Ipratropium [place] 0.2 MG/ML (0.02 %) SOLUTION 1 Vial INH/WENDY PRN COPD ( Reported) Tiotropium [place] (Spiriva Respimat) (Unknown Strength) MIST.INHAL (Unknown Dose) UNKNOWN (Reported) Current Medications: Current Medications Sig/Rossy Start time Last Medication Dose Route Stop Time Status Admin Acetaminophen 650 MG Q6P PRN 10/02 0230 AC PO Albuterol Sulfate 3 ML Q4H PRN 10/02 1030 AC 10/03 INH 2120 Albuterol Sulfate 2 PUF Q6P PRN 10/02 0230 AC 10/02 INH 2105 Alprazolam 0.25 MG DAILY PRN 10/02 0230 AC 10/02 PO 10/09 0229 2104 Azithromycin 500 MG DAILY 10/03 1150 AC 10/04 PO 1000 Bisacodyl 5 MG DAILY NEEDED PRN 10/03 0830 AC PO Budesonide/ 2 PUF BID 10/02 1000 AC 10/04 Formoterol Fumarate INH 0958 Bupropion HCl 150 MG BID 10/02 1000 AC 10/04 PO 1000 Ceftriaxone Sodium 1,000 MG Q24H 10/02 2115 AC 10/03 IV 2216 Docusate Sodium 100 MG DAILY 10/03 1000 AC 10/04 PO 1000 Furosemide 40 MG DAILY 10/02 1000 DC 10/02 IV 0912 Guaifenesin 600 MG Q12 10/02 2200 AC 10/04 PO 1000 Heparin Sodium 5,000 UNIT Q8 10/02 2200 AC 10/03 (Porcine) SC 2215 Ibuprofen 600 MG Q6P PRN 10/02 0230 AC PO Ketorolac 15 MG Q6P PRN 10/02 0230 DC Tromethamine IV Nicotine 14 MG DAILY 10/03 1134 AC 10/03 TOP 1312 Nicotine 21 MG DAILY 10/02 1000 DC 10/02 TOP 0757 Patient Medication 1 ED .STK-MED ONE 10/03 1401 [place] Teaching ED 10/03 1402 Polyethylene Glycol 17 GM DAILY 10/03 1000 AC 10/04 PO 0959 Prednisone 40 MG DAILY 10/02 1000 AC 10/04 PO 1000 Senna/Docusate Sodium 2 TAB DAILY 10/03 1000 AC 10/04 PO 1000 Tiotropium [place] 1 PUF DAILY 10/02 1000 AC 10/04 INH 0958 Review of Systems Comments 18 point review of systems performed. Pertinent positive and negative findings are in the HPI, otherwise negative. Past History Travel History Traveled to [place] past 21 day No Medical History Blood Transfusion Hx: No Neurological: LUPUS EENT: NONE Cardiovascular: NONE Respiratory: COPD Gastrointestinal: ACID REFLUX Hepatic: NONE Renal: NONE Musculoskeletal: NONE Psychiatric: anxiety Endocrine: NONE Surgical History Surgical History: non-contributory Family History Relations & Conditions If Any: BROTHER Relation not specified for: FH: lung cancer Psychosocial History Where Do You Live? Home Services at Home: None Smoking Status: Current Everyday Smoker ETOH Use: denies use Exam & Diagnostic Data Last 24 Hrs of Vital Signs/I&O Vital Signs Date Time Temp Pulse Resp B/P B/P Pulse O2 O2 Flow FiO2 Mean Ox Delivery Rate 10/04 0957 18 91 Nasal 1.0L Cannula 10/04 0717 97.9 88 20 138/82 93 Nasal Cannula 10/04 0000 92 Nasal 2.0L Cannula 10/03 2333 97.9 87 20 126/76 94 Nasal 2.0L Cannula 10/03 2120 93 Nasal 2.0L Cannula 10/03 1619 98.0 91 18 120/80 91 Nasal Cannula 10/03 1600 91 Nasal 2.0L Cannula 10/03 1408 91 Nasal 3.0L Cannula 10/03 1300 19 91 Nasal 2.0L Cannula 10/03 1200 20 88 Nasal 1.0L Cannula 10/03 1104 20 93 Nasal 1.0L Cannula Intake & Output 10/04 1600 10/04 0800 10/04 0000 Intake Total 800 600 Output Total Balance 800 600 Intake, Oral 800 600 Number 1 Bowel Movements Physical Exam Other Physical Findings: gen awake and alert heent ncat cvs s1, s2 lungs prolonged end expiratory phase, otherwise clear abd soft bs+ ext rle slightly red Last 48 Hrs of Labs/Silver[place]: Laboratory Tests 10/04/16 0640: Anion Gap 6, Estimated GFR > 60, BUN/Creatinine Ratio 21.4 10/03/16 1200: Troponin I Cancelled 10/03/16 0712: Anion Gap 3 L, Estimated GFR > 60, BUN/Creatinine Ratio 20.0, Troponin I < 0.01 , CBC w Diff NO MAN DIFF REQ, RBC 5.28, MCV 94.7, MCH 30.4, RDW 14.7 H, MPV 11.4 H, Gran % 73.9, Lymphocytes % 17.2 L, Monocytes % 7.4, Eosinophils % 1.0, Basophils % 0.5, Absolute Granulocytes 6.9 H, Absolute Lymphocytes 1.6, Absolute Monocytes 0.7 H, Absolute Eosinophils 0.1, Absolute Basophils 0, PUBS MCHC 32.1 L 10/02/16 2355: APTT Cancelled 10/02/16 1934: Troponin I < 0.01 Assessment/Plan Impression/Plan: Impression 56 year old woman * COPD underlying * Community acquired RUL pna * Tobacco dependence Plan -RLE care per primary team -spiriva and Symbicort with rinsing of the mouth - ensure rx upon discharge -nebulized tx with albuterol -smoking cessation - counseled -assess o2 on room air at rest and exertion -dc planning within 24 hrs, if o2 sat <88% then arrange o2 at home -will require pfts and repeat ct as outpt with me DVT prophylaxis at all times Consult Acknowledgment - Thank you for your consult request.
[2016-10-04] MEDS ORDERED: SPIRIVA18 MCG INH (11:25)
--- NOTE | 2016-10-04 11:27 | Patient Discharge Instructions ---
Discharge Instructions General Discharge Information Special Instructions: Follow up with Dr. Peng after discharge for further evaluation of your COPD. Take Symbicort/Spiriva as directed. Take Prednisone and prescribed antibiotics as directed. Do not miss a dose, be sure to finish these medications. Contact [facility] to establish care with a primary care provider. Schedule an appointment within two tweeks of discharge. Acute Coronary Syndrome Inclusion Criteria At DC or during hospital stay patient has or had the following: ACS DIAGNOSIS No Discharge Core Measures Meds if any: Prescribed or Continued at Discharge Meds if any: NOT Prescribed or Continued at Discharge Congestive Heart Failure Inclusion Criteria At DC or during hospital stay patient has or had the following: CHF DIAGNOSIS No Discharge Core Measures Meds if any: Prescribed or Continued at Discharge Meds if any: NOT Prescribed or Continued at Discharge Cerebrovascular accident Inclusion Criteria At DC or during hospital stay patient has or had the following: CVA/TIA Diagnosis No Discharge Core Measures Meds if any: Prescribed or Continued at Discharge Meds if any: NOT Prescribed or Continued at Discharge Venous thromboembolism Inclusion Criteria VTE Diagnosis No VTE Type NONE VTE Confirmed by (Test) NONE Discharge Core Measures - Per Current guidelines, there needs to be overlap - treatment for the first 5 days of Warfarin therapy. - If discharged on Warfarin prior to 5 days of - overlap therapy, the patient will need to be - assessed for post discharge needs including - *Post discharge parental anticoagulation - *Warfarin and/or parental anticoagulation education - *Follow up date to check INR post discharge At least 5 days overlap therapy as Inpatient No Meds if any: Prescribed or Continued at Discharge Note: Overlap Therapy is Warfarin and Anticoagulant Meds if any: NOT Prescribed or Continued at Discharge
[2016-10-04 14:35] VITALS: BP 138/92
--- NOTE | 2016-10-04 15:01 | PN- Att Addend ---
Attending Addendum Attending Brief Note Patient seen and examined. Plan of care discussed with the medical team and the patient. Available lab work and radiology test reports were reviewed. Pt feels better than yesterday. Denies fever or chills. She was able to ambulate within the room. Vital Signs Date Time Temp Pulse Resp B/P B/P Pulse O2 O2 Flow FiO2 Mean Ox Delivery Rate 10/04 1435 97.1 92 18 138/92 90 Room Air 10/04 1420 Room Air 10/04 1309 18 90 Room Air 10/04 0957 18 91 Nasal 1.0L Cannula 10/04 0800 93 Nasal 2.0L Cannula 10/04 0717 97.9 88 20 138/82 93 Nasal Cannula 10/04 0000 92 Nasal 2.0L Cannula 10/03 2333 97.9 87 20 126/76 94 Nasal 2.0L Cannula 10/03 2120 93 Nasal 2.0L Cannula 10/03 1619 98.0 91 18 120/80 91 Nasal Cannula 10/03 1600 91 Nasal 2.0L Cannula Intake & Output 10/04 1600 10/04 0800 10/04 0000 Intake Total 800 600 Output Total Balance 800 600 Intake, Oral 800 600 Number 2 Bowel Movements Exam: General: Patient awake alert oriented without any distress CVS: S1 plus S2 without any murmur or gallops Chest: Few scattered crepitation without any wheeze. There is no respiratory distress. 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 No CT evidence of pulmonary embolism is present. 2. Likely pleuroparenchymal scar related changes are noted at right upper lobe and both lung bases, similar to prior study dated 12/27/2013. 3. Interval development of a focal airspace opacity is noted within the central part of the right upper lobe of the lung, may represent pneumonia. Follow-up imaging to document resolution is recommended. Ultrasound legs VTE: Negative. Assessment * Lobar pneumonia * COPD exacerbation * Hypoxia and acute history failure * Sinus tachycardia * History of cutaneous lupus * History of smoking Plan * Continue ceftriaxone and azithromycin * Taper oxygen as tolerated * Increase ambulation * We'll plan to switch to oral antibiotics tomorrow
--- NOTE | 2016-10-04 19:01 | NUR ---
O2 SAT AT REST ON ROOM AIR IS 90%. O2 SAT AFTER AMBULATING ABOUT 75 FEET ON ROOM AIR WAS 88%. NO RESPIRATORY DISTRESS NOTED.
--- NOTE | 2016-10-04 19:47 | ECHOCARDIOGRAM REPORT ---
CLARA FIGUEROA Age: 56 : 1960 Gender: F Exam Date: 10/03/2016 20:01 Exam Location: 1 [address] Ht (in): 62 Wt (lb): 142 BSA: 1.69 BP: 122 / 70 Ordering Physician: CANDY PHAM MD Referring Physician: Joel Rothman MD Technologist: Sofia Jeff [facility] Room Number: 173 Indications: HEART FAILURE Rhythm: Sinus Technical Quality: Fair FINDINGS Left Ventricle Small left ventricular cavity. Mild concentric left ventricular hypertrophy. Normal left ventricular wall motion. Normal left ventricular ejection fraction visually estimated at >65%. "pseudonormal" filling pattern of the left ventricle for age (stage 2 diastolic dysfunction). Right Ventricle Normal right ventricular size and function. Right Atrium Normal right atrial size. Elevated right atrial pressure. Left Atrium Normal left atrial size. Mitral Valve Minimal mitral annular calcification. Mitral valve mildly thickened. Trace mitral regurgitation. Aortic Valve Aortic valve not well visualized. Mild aortic sclerosis. No aortic valve stenosis or regurgitation. Tricuspid Valve Mildly thickened tricuspid valve. Mild tricuspid regurgitation. Moderate pulmonary hypertension. Right ventricular systolic pressure estimated to be elevated at 52 mmHg. Pulmonic Valve Pulmonic valve not well visualized, grossly normal. Mild pulmonic regurgitation. Pericardium No pericardial effusion. Great Vessels Normal size aortic root. Dilated inferior vena cava. CONCLUSIONS Small left ventricular cavity. Mild concentric left ventricular hypertrophy. Normal left ventricular ejection fraction visually estimated at > 65%. "pseudonormal" filling pattern of the left ventricle for age (stage 2 diastolic dysfunction). Normal right ventricular size and function. Normal atrial size. Elevated right atrial pressure. Trace mitral regurgitation. Mild tricuspid regurgitation. Moderate pulmonary hypertension. Mild pulmonic regurgitation. Dilated inferior vena cava. Joel Rothman M.D. (Electronically Signed) Final Date: 04 October 2016 19:46 MEASUREMENTS (Male / Female) Normal Values 2D ECHO LV Diastolic Diameter PLAX 3.7 cm 4.2 - 5.9 / 3.9 - 5.3 cm LV Systolic Diameter PLAX 1.7 cm 2.1 - 4.0 cm LV Fractional Shortening PLAX 54.1 % 25 - 46 % LV Ejection Fraction 2D Teich 85.6 % IVS Diastolic Thickness 1.0 cm LVPW Diastolic Thickness 1.0 cm LV Relative Wall Thickness 0.5 RV Internal Dim ED PLAX 3.0 cm 1.9 - 3.8 cm LVOT Diameter 1.9 cm Aortic Root Diameter 2.6 cm LA Systolic Diameter LX 2.6 cm 3.0 - 4.0 / 2.7 - 3.8 cm LA Volume 22.0 cm 18 - 58 / 22 - 52 cm Ascending Aorta Diameter 2.9 cm DOPPLER AV Peak Velocity 150.0 cm/s AV Peak Gradient 9.0 mmHg AV Mean Velocity 93.7 cm/s AV Mean Gradient 4.0 mmHg AV Velocity Time Integral 27.4 cm LVOT Peak Velocity 123.0 cm/s LVOT Peak Gradient 6.1 mmHg LVOT Mean Velocity 82.6 cm/s LVOT Mean Gradient 3.0 mmHg LVOT Velocity Time Integral 22.9 cm LVOT Stroke Volume 64.9 cm AV Area Cont Eq vti 2.4 cm AV Area Cont Eq pk 2.3 cm MV Peak Velocity 99.2 cm/s MV Peak Gradient 3.9 mmHg MV Mean Velocity 66.5 cm/s MV Mean Gradient 2.0 mmHg Mitral E Point Velocity 84.9 cm/s Mitral A Point Velocity 73.5 cm/s Mitral E to A Ratio 1.2 MV PHT Velocity 90.3 cm/s MV Deceleration [place] 454.0 cm/s MV Pressure Half Time 59.7 ms MV Area PHT 3.7 cm MV Deceleration Time 219.0 ms TR Peak Velocity 345.0 cm/s TR Peak Gradient 47.6 mmHg Right Atrial Pressure 5.0 mmHg Pulmonary Artery Systolic Pressu 52.6 mmHg Right Ventricular Systolic Press 52.6 mmHg PV Peak Velocity 103.0 cm/s PV Peak Gradient 4.2 mmHg PV Mean Velocity 75.7 cm/s PV Mean Gradient 3.0 mmHg PV Velocity Time Integral 20.6 cm LV E' Lateral Velocity 13.0 cm/s Mitral E to LV E' Lateral Ratio 6.5 LV E' Septal Velocity 6.4 cm/s Mitral E to LV E' Septal Ratio 13.2
[2016-10-04 22:59] VITALS: BP 132/72
--- NOTE | 2016-10-05 06:53 | PN- Housestaff ---
Subjective Follow-up For: Acute Hypoxic Respiratory Failure COPD Lower extremity swelling Tele-Events Since Last Visit: Off Telemetry Subjective: Patient seen and examined. She is seen sitting upright in bed resting comfortably. She appears to be in no acute distress. She reports feeling well and is breathing comfortably on room air; she does admit that her "oxygen dropped" when walking around yesterday. She admits to feeling shaky/sweaty but attributes it to the steroids. She states that she feels there's "something in her throat" and has an associated dry cough. Otherwise she denies any fever, chills, chest pain, nausea, vomiting. Review of Systems Constitutional: Reports: see HPI. Objective Last 24 Hrs of Vital Signs/I&O Vital Signs Date Time Temp Pulse Resp B/P B/P Pulse O2 O2 Flow FiO2 Mean Ox Delivery Rate 10/05 0658 98.5 84 18 136/90 91 Room Air 10/05 0000 92 Room Air 10/04 2259 97.9 98 16 132/72 91 Room Air 10/04 1903 90 10/04 1600 90 10/04 1435 97.1 92 18 138/92 90 Room Air 10/04 1420 Room Air 10/04 1309 18 90 Room Air 10/04 0957 18 91 Nasal 1.0L Cannula 10/04 0800 93 Nasal 2.0L Cannula Intake & Output 10/05 0800 10/05 0000 10/04 1600 Intake Total 1400 Output Total Balance 1400 Intake, Oral 1400 Number 1 2 Bowel Movements Physical Exam General Appearance: Alert, Oriented X3, Cooperative, No Acute Distress Other Physical Findings: General- well developed, well nourished middle aged woman in no acute distress HEENT- NCAT, PERRL, EOMI, anicteric sclera Chest- S1, S2 w/o m/g/r; RRR Lung- decreased airflow bilaterally without crackles Abdomen- Soft, nontender, nondistended, bowel sounds intact Neuro- Awake and alert, CN II-XII grossly intact Ext- normal pulses, no cyanosis/clubbing/edema Current Medications: Current Medications Sig/Rossy Start time Last Medication Dose Route Stop Time Status Admin Acetaminophen 650 MG Q6P PRN 10/02 0230 AC PO Al Hydroxide/Mg 30 ML .STK-MED ONE 10/04 1506 DC Hydroxide PO 10/04 1507 Al Hydroxide/Mg 30 ML Q4-6 PRN PRN 10/04 1500 AC 10/04 Hydroxide PO 1505 Albuterol Sulfate 3 ML Q4H PRN 10/02 1030 AC 10/03 INH 2120 Albuterol Sulfate 2 PUF Q6P PRN 10/02 0230 AC 10/02 INH 2105 Alprazolam 0.25 MG DAILY PRN 10/02 0230 AC 10/02 PO 10/09 0229 2104 Azithromycin 500 MG DAILY 10/03 1150 AC 10/04 PO 1000 Bisacodyl 5 MG DAILY NEEDED PRN 10/03 0830 AC PO Budesonide/ 2 PUF BID 10/02 1000 AC 10/04 Formoterol Fumarate INH 2242 Bupropion HCl 150 MG BID 10/02 1000 AC 10/04 PO 2241 Ceftriaxone Sodium 1,000 MG Q24H 10/02 2115 AC 10/04 IV 2241 Docusate Sodium 100 MG DAILY 10/03 1000 AC 10/04 PO 1000 Guaifenesin 600 MG Q12 10/02 2200 AC 10/04 PO 2241 Heparin Sodium 5,000 UNIT Q8 10/02 2200 AC 10/05 (Porcine) SC 0635 Ibuprofen 600 MG Q6P PRN 10/02 0230 AC PO Nicotine 14 MG DAILY 10/03 1134 AC 10/03 TOP 1312 Polyethylene Glycol 17 GM DAILY 10/03 1000 AC 10/04 PO 0959 Prednisone 40 MG DAILY 10/02 1000 AC 10/04 PO 1000 Senna/Docusate Sodium 2 TAB DAILY 10/03 1000 AC 10/04 PO 1000 Tiotropium [place] 1 PUF DAILY 10/02 1000 AC 10/04 INH 0958 Assessment/Plan Assessment: 56 year old current everyday smoker with multiple medical problems significant for COPD not on home oxygen, '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 Man more than 10 years ago but lost to follow up reportedly due to insurance issues. Patient reports taking a week duration of Keflex for her lower extremity swelling/redness without improvement. Patient was saturating 88% on room air upon initial evaluation with dramatically decreased air entry. CXR demonstrated stable coarse interstitial markings without focal airspace consolidation. Patient was started of intravenous Ceftriaxone and oral steroids and admitted to the telemetry floor for further evaluation. Bilateral lower extremity doppler and CTA were negative for pulmonary embolism. Cardiology/Pulmonology consults were placed. Azithromycin was added to her regimen due to her persistent hypoxia. Patient is discharged to home on oral antibiotics to complete a 7 day total course, a rescue inhaler, prednisone taper, and Symbicort/Spiriva. Smoking cessation was discussed, she is to continue Wellbutrin to aid with this. She intends on establishing care with [facility] primary care clinic for ongoing care. -Telemetry -Supplemental oxygen, goal >92%, taper as tolerated -TRC with nebs PRN -Ceftriaxone 1g IV Daily -Azithromycin 500mg PO Daily -Prednisone 40mg PO Daily Taper -Nicotine 14mg Patch Daily -Guaifenesin 600mg PO Q12H -Spiriva/Symbicort -Cardiology consult -Pulmonology consult Pain Plan-Acetaminophen/Toradol Bowel Regimen-Senna/Colace/Miralax Diet-Regular Diet DVT PPx-subcutaneous heparin Code Status-FULL CODE Problem List: 1. COPD exacerbation Pain Ratin Pain Location: None Pain Goal: Remain pain free Pain Plan: See assessment Tomorrow's Labs & Rationales: None
[2016-10-05 06:58] VITALS: BP 136/90
--- NOTE | 2016-10-05 07:03 | PN- Student ---
THAI KENYON 10/05/16 0703: Subjective Subjective: Pt. is sitting in bed, in no apparent distress, and in good spirits. She states she "can't wait to go home." She states she does not experience any shortness of breath, CP, or palpitations while ambulating to the toilet. She is still coughing and feels as if the phlegm is stuck in her throat. She wants to follow up with physicians locally. She denies any other pain, numbess, tingling, WYATT, nausea, or vomiting. ROS: Denies constipation, diarrhea, pain upon urination, trouble urinating Objective Objective: VS: Temp 98.5, HR 84, RR 18, BP 136/90, O2 91% RA PE: General: Calm, cooperative, in no apparent distress. Affect is appropriate to situation Neuro: CN 2-12 grossly intact CV: RRR, Normal S1 and S2, no mumurs, rubs, or gallops Pulm: Decreased breath sounds with moderate airflow GI: Normal bowel sounds in all 4 quadrants. Soft, nontender, nondistended. LE: Trace right leg edema and erythema. +2 pulses bilaterally. Results Results: Laboratory Tests 10/04/16 0640: Anion Gap 6, Estimated GFR > 60, BUN/Creatinine Ratio 21.4 10/03/16 1200: Troponin I Cancelled 10/03/16 0712: Anion Gap 3 L, Estimated GFR > 60, BUN/Creatinine Ratio 20.0, Troponin I < 0.01 , CBC w Diff NO MAN DIFF REQ, RBC 5.28, MCV 94.7, MCH 30.4, RDW 14.7 H, MPV 11.4 H, Gran % 73.9, Lymphocytes % 17.2 L, Monocytes % 7.4, Eosinophils % 1.0, Basophils % 0.5, Absolute Granulocytes 6.9 H, Absolute Lymphocytes 1.6, Absolute Monocytes 0.7 H, Absolute Eosinophils 0.1, Absolute Basophils 0, PUBS MCHC 32.1 L 10/02/16 2355: APTT Cancelled 10/02/16 1934: Troponin I < 0.01 Assessment/Plan Assessment: Pt. is a 56 yo woman with a history of smoking, COPD without home oxygen, anxiety, and lupus presenting to the ED with bilateral edema, right leg erythema , tachycardia, exertional dyspnea, and hypoxia. Pt was in her usual state of health until 1 month ago when she was diagnosed with right lower leg cellulitis and was given two courses of Keflex by her PCP. One week prior to admission, her right leg progressively worsened and experienced subjective low grade fevers, chills, and 10/10 pain tightness of the right leg that awoken her at night. Acute hypoxic respiratory failure: COPD exacerbation vs PE vs pneumonia. On admission her VS Temp 98.2, HR 123, BP 168/94, O2 88% on RA. She was mildly hypercapnic, but ED states she was in no acute distress. She received duoneb tx and 3L NC, which improved her O2 to 91-92%. HR decreased to 86-103 and BP decreased (122-138/78-88) after oxygen and respiratory therapy. Considering this patient's extensive, smoking hx, dyspnea on exertion, negative CXR, and hx of COPD, this patient may be experiencing a COPD exacerbation. The pt. was also experiencing palpitations and EKG showed S1Q3T3 pattern, which are suggestive of PE, but CTA show no evidence of pulmonary embolism so this is less likely. It is possible that this patient could have an underlying pneumonia. She has nonproductive cough and CTA showed right upper lobe focal airspace opacity, which could be suggestive of pneumonia. We will broaden her antibiotic therapy to cover pathogens for CAP. Titrated her O2 and she saturated at 88% on RA. She is saturating between 91-94% on 2L. 10/04/16 pt. is saturating between 90-92% on room air, but drops down to 88% while ambulating. 10/05/16 pt.'s oxygen saturation while ambulating is 88-89%. Dr. Peng is aware and states that she is able to be discharged. He will follow up with her in outpatient basis. * Admit to telemetry floor: hemodynamically stable, d/c telemetry * Titrate O2; O2 sat >92% * Prednisone 40mg PO taper * Tiotropium Inhaler daily * Albuterol 3mL Inhaler q4H PRN * Budesonide/Formoterol Fumarate Inh BID * Guaifenesin 500mg PO q12h * Azithromycin 500 mg PO QD: * Ceftriaxone IV QD: completed * Wellbutrin 150mg PO BID for smoking cessation * Pulmonology consult: If O2 is <88%, then discharge on O2 at home. Outpatient PFT and CT * Stable for discharge today: Will go home with prednisone w/ taper instructions , spiriva, symbicort, nebulizer, albuterol, and two more days of Augmentin PO. Leg swelling/DVT prophylaxis: CHF vs cellulitis vs DVT. On admission, the pt had tachycardia, hypertension, and mildly elevated pro-B-CORRECTIONS CADET, which is suggestive of CHF. Cellulitis is less likely because the pt denies any injury or skin abrasians, hx of DM, drainage, and WBC was within normal limits. Since the pt had asymmetric bilateral edema, a doppler was ordered and it was negative for DVT, so this diagnosis is less likely. ECHO was performed and showed stage 2 diastolic dysfunction and pulmonary HTN, which supports her pulmonary . * Strict I's and O's * Daily Weights * Hold Lasix 40mg IV QD due to increase in bicarb * Ibuprofen 600mg q6h PO PRN for pain * Heparin for DVT prophylaxis * Cardiology consult: follow up recommendations for d/c * Bilateral lower extremity Doppler for DVT: negative * Serial troponin: negative * Serial EKG: sinus rhythm, atrial abnormalities, right axis, left ventricular hypertrophy, and an S1,Q3,T3 pattern. * Echocardiogram pending: showed stage 2 diastolic failure, EF >65%, moderate pulmonary HTN, increase RAP, trace mitral regurg, mild pulmonary and tricuspid regurg * BEP, trend kidney function and electrolytes Constipation: Resolved. * Senokot S QD PO * Colace QD PO * Miralax QD PO Cutaneous Lupus: Pt. has not seen the general maintenance mechanic since August 2005. A call was made to Dr. Coelho's office and stated that she had negative ROBERTO and dsDNA antibodies. 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
[2016-10-05] MEDS ORDERED: SYMBICORT 80-10.2 GM INH ×3 (07:42→14:51)
[2016-10-05] MEDS ORDERED: AMOXICILLIN875 M1 PO (07:42)
--- NOTE | 2016-10-05 08:25 | PN- Att Addend ---
Attending Addendum Attending Brief Note Patient seen and examined. Plan of care discussed with the medical team and the patient. Available lab work and radiology test reports were reviewed. Pt feels better than yesterday. Denies fever or chills. She was able to ambulate within the room. She is less short of breath. Vital Signs Date Time Temp Pulse Resp B/P B/P Pulse O2 O2 Flow FiO2 Mean Ox Delivery Rate 10/05 0658 98.5 84 18 136/90 91 Room Air 10/05 0600 92 Room Air 10/05 0000 92 Room Air 10/04 2259 97.9 98 16 132/72 91 Room Air 10/04 1903 90 10/04 1600 90 10/04 1435 97.1 92 18 138/92 90 Room Air 10/04 1420 Room Air 10/04 1309 18 90 Room Air 10/04 0957 18 91 Nasal 1.0L Cannula Intake & Output 10/05 1600 10/05 0800 10/05 0000 Intake Total 600 1400 Output Total Balance 600 1400 Intake, Oral 600 1400 Number 1 Bowel Movements Patient 140 lb Weight Weight Chair scale Measurement Method Exam: General: Patient awake alert oriented without any distress CVS: S1 plus S2 without any murmur or gallops Chest: Few scattered crepitation without any wheeze. There is no respiratory distress. 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 Mild concentric left ventricular hypertrophy. Normal left ventricular ejection fraction visually estimated at > 65%. "pseudonormal" filling pattern of the left ventricle for age (stage 2 diastolic dysfunction). Normal right ventricular size and function. Normal atrial size. Elevated right atrial pressure. Trace mitral regurgitation. Mild tricuspid regurgitation. Moderate pulmonary hypertension. Mild pulmonic regurgitation. Dilated inferior vena cava. Assessment * Lobar pneumonia * COPD exacerbation * Hypoxia and acute history failure * Sinus tachycardia * History of cutaneous lupus * History of smoking Plan * Switch to oral Augmentin Total of 5-7 days of antibiotics * Plan for discharge home today * Continue prednisone taper over the next 5 days * Follow with Dr. Peng * Patient will follow in the clinic for primary care * Total time spent in preparation for discharge plan, patient education, and CMR preparation was 35 minutes.
--- NOTE | 2016-10-05 09:04 | PN- Pulmonary ---
Subjective HPI/Critical Care Issues: pt seen and examined afebrile normotensive 91% on RA Objective Current Medications: Current Medications Sig/Rossy Start time Last Medication Dose Route Stop Time Status Admin Acetaminophen 650 MG Q6P PRN 10/02 0230 AC PO Al Hydroxide/Mg 30 ML .STK-MED ONE 10/04 1506 DC Hydroxide PO 10/04 1507 Al Hydroxide/Mg 30 ML Q4-6 PRN PRN 10/04 1500 AC 10/04 Hydroxide PO 1505 Albuterol Sulfate 3 ML Q4H PRN 10/02 1030 AC 10/03 INH 2120 Albuterol Sulfate 2 PUF Q6P PRN 10/02 0230 AC 10/02 INH 2105 Alprazolam 0.25 MG DAILY PRN 10/02 0230 AC 10/02 PO 10/09 0229 2104 Amoxicillin/ 875 MG BID 10/05 1000 AC Clavulanate Potassium PO Azithromycin 500 MG DAILY 10/03 1150 AC 10/04 PO 1000 Bisacodyl 5 MG DAILY NEEDED PRN 10/03 0830 AC PO Budesonide/ 2 PUF BID 10/02 1000 AC 10/04 Formoterol Fumarate INH 2242 Bupropion HCl 150 MG BID 10/02 1000 AC 10/04 PO 2241 Ceftriaxone Sodium 1,000 MG Q24H 10/02 2115 DC 10/04 IV 2241 Docusate Sodium 100 MG DAILY 10/03 1000 AC 10/04 PO 1000 Guaifenesin 600 MG Q12 10/02 2200 AC 10/04 PO 2241 Heparin Sodium 5,000 UNIT Q8 10/02 2200 AC 10/05 (Porcine) SC 0635 Ibuprofen 600 MG Q6P PRN 10/02 0230 AC PO Nicotine 14 MG DAILY 10/03 1134 AC 10/03 TOP 1312 Polyethylene Glycol 17 GM DAILY 10/03 1000 AC 10/04 PO 0959 Prednisone 40 MG DAILY 10/02 1000 AC 10/04 PO 1000 Senna/Docusate Sodium 2 TAB DAILY 10/03 1000 AC 10/04 PO 1000 Tiotropium [place] 1 PUF DAILY 10/02 1000 AC 10/04 INH 0958 Vital Signs & I&O Last 24 Hrs of Vitals and I&O: Vital Signs Date Time Temp Pulse Resp B/P B/P Pulse O2 O2 Flow FiO2 Mean Ox Delivery Rate 10/05 0844 91 Room Air 10/05 0658 98.5 84 18 136/90 91 Room Air 10/05 0600 92 Room Air 10/05 0000 92 Room Air 10/04 2259 97.9 98 16 132/72 91 Room Air 10/04 1903 90 10/04 1600 90 10/04 1435 97.1 92 18 138/92 90 Room Air 10/04 1420 Room Air 10/04 1309 18 90 Room Air 10/04 0957 18 91 Nasal 1.0L Cannula Intake & Output 10/05 1600 10/05 0800 10/05 0000 Intake Total 600 1400 Output Total Balance 600 1400 Intake, Oral 600 1400 Number 1 Bowel Movements Patient 140 lb Weight Weight Chair scale Measurement Method Exam Other Physical Findings: gen awake and alert heent ncat cvs s1, s2 lungs prolonged end expiratory phase, otherwise clear abd soft bs+ ext rle slightly red Impression/Plan Impression/Plan Impression/Plan: Impression 56 year old woman * COPD underlying * Community acquired RUL pna * Tobacco dependence Plan -RLE care per primary team -spiriva and Symbicort with rinsing of the mouth - ensure rx upon discharge -nebulized tx with albuterol -smoking cessation - counseled -assess o2 on room air at rest and exertion -dc planning within 24 hrs, if o2 sat <88% then arrange o2 at home -will require pfts and repeat ct as outpt with me -transition to po abx DVT prophylaxis at all times
[2016-10-05] MEDS ORDERED: PREDNISONE10 M2 PO ×3 (09:51→14:51)
[2016-10-05] MEDS ORDERED: PROAIR HFA8.5 GM INH ×3 (09:51→14:51)
[2016-10-05] MEDS ORDERED: AUGMENTIN 875-1 EACH PO ×3 (10:53→14:51)
--- NOTE | 2016-10-05 11:32 | Discharge Summary ---
Visit Information Visit Dates Admission Date: 10/01/16 Discharge Date: 10/05/16 Hospital Course Course Attending Physician: JOVANY HONEYCUTT MD Primary Care Physician: UNKNOWN Consulting Request: 1 Consulting Specialty: Cardiology Consulting Request: 2 Consulting Specialty: Pulmonary Disease Hospital Course: 56 year old current everyday smoker with multiple medical problems significant for COPD not on home oxygen, 'cutaneous lupus' previoulsy on hydroxychloroquine, and recent outpatient treatment for cellulitis with keflex seen for evaluation of lower extremity swelling and shortness of breath over the month prior to evaluation. 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 Man more than 10 years ago but lost to follow up reportedly due to insurance issues. Patient reports taking a week duration of Keflex for her lower extremity swelling/redness without improvement. Patient was saturating 88% on room air upon initial evaluation with dramatically decreased air entry. CXR demonstrated stable coarse interstitial markings without focal airspace consolidation. Patient was started of intravenous Ceftriaxone and oral steroids and admitted to the telemetry floor for further evaluation. Bilateral lower extremity doppler and CTA were negative for pulmonary embolism. Cardiology/Pulmonology consults were placed. Azithromycin was added to her regimen due to her persistent hypoxia and concern for community acquired pneumonia. Patient was tapered off supplemental oxygen. Patient was discharged to home on a steroid taper and oral antibiotics with instruction to follow up with Dr. Peng for further care of her COPD and to establish care with [facility]. Allergies: Coded Allergies: Quinolones (HIVES 08/26/16) Sulfa (Sulfonamide Antibiotics) (SKIN BURNING 08/26/16) Significant Procedures: SERVICE DATE: 10/01/16-2045 EXAM TYPE: RAD - XRY-PORTABLE CHEST XRAY IMPRESSION: Stable coarse interstitial markings. No focal airspace consolidation. SERVICE DATE: 10/02/16- EXAM TYPE: US - US-EXT BILAT VENOUS DOPPLER IMPRESSION: 1. No evidence of deep venous thrombosis involving both lower extremities. 2. 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 SERVICE DATE: 10/02/16-1632 EXAM TYPE: CAT - CTA CHEST-PULMONARY EMBOLISM IMPRESSION: 1. No CT evidence of pulmonary embolism is present. 2. Likely pleuroparenchymal scar related changes are noted at right upper lobe and both lung bases, similar to prior study dated 12/27/2013. 3. Interval development of a focal airspace opacity is noted within the central part of the right upper lobe of the lung, may represent pneumonia. Follow-up imaging to document resolution is recommended. VTE: Negative. SERVICE DATE: 10/03/16- EXAM TYPE: CARD - ECHOCARDIOGRAM CONCLUSIONS Small left ventricular cavity. Mild concentric left ventricular hypertrophy. Normal left ventricular ejection fraction visually estimated at > 65%. "pseudonormal" filling pattern of the left ventricle for age (stage 2 diastolic dysfunction). Normal right ventricular size and function. Normal atrial size. Elevated right atrial pressure. Trace mitral regurgitation. Mild tricuspid regurgitation. Moderate pulmonary hypertension. Mild pulmonic regurgitation. Dilated inferior vena cava. Disposition Summary Disposition Principal Diagnosis: Acute Hypoxic Respiratory Failure Community Acquired Pneumonia COPD exacerbation Additional Diagnosis: See above Discharge Disposition: home or self care Discharge Instructions General Discharge Information Code Status: Full Code Patient's Diet: Regular Diet Patient's Activity: Return to full activity as tolerated Follow-Up Instructions/Appts: Follow up with Dr. Peng after discharge for further evaluation of your COPD. Take Symbicort/Spiriva as directed. Take Prednisone and prescribed antibiotics as directed. Do not miss a dose, be sure to finish these medications. Contact [facility] to establish care with a primary care provider. Schedule an appointment within two tweeks of discharge. Medications at Discharge Discharge Medications: Stop taking the following medications: Budesonide (Pulmicort) 0.25 MG/2 ML AMPUL.NEB Inhale Solution as needed for COPD Qty = 120 Cephalexin (Cephalexin) 500 MG CAPSULE ORAL THREE TIMES DAILY Qty = 21 Continue taking these medications: Tiotropium [place] (Spiriva Respimat) 2.5 MCG/ACTUATION MIST.INHAL 1 PUFF Inhale through mouth DAILY Comments: Last Taken: 10/05/16 Time: 940 AM Alprazolam (Alprazolam) 0.25 MG TABLET 1 Tablet ORAL as needed for ANXIETY Qty = 30 Comments: Last Taken: 10/02/16 Time: 9 PM Bupropion HCl (Bupropion HCl Sr) 150 MG TABLET.ER 1 Tablet ORAL TWICE DAILY Comments: Last Taken: 10/05/16 Time: 930 AM Ipratropium [place] (Ipratropium [place]) 0.2 MG/ML (0.02 %) SOLUTION 1 Vial Inhale Solution as needed for COPD Qty = 63 Comments: NOT TAKEN Albuterol Sulfate (Proair Hfa) 90 MCG HFA.AER.AD 2 Puff Inhale through mouth EVERY SIX HOURS as needed for COPD Qty = 1 Instructions: TAKE DIRECTED. Comments: NEBULIZER TREATMENTS GIVEN IN HOSPITAL This prescription has been renewed Start taking the following new medications: Amoxicillin/Potassium Clav (Augmentin 875-125 Tablet) 875 MG-125 MG TABLET 1 Tablet ORAL TWICE DAILY Qty = 5 No Refills Instructions: TAKE DIRECTED. Comments: Last Taken:10/05/16 Time:0935 AM Budesonide/Formoterol Fumarate (Symbicort 80-4.5 Mcg Inhaler) 80 MCG-4.5 MCG/ ACTUATION HFA.AER.AD 2 Puff Inhale through mouth TWICE DAILY Qty = 1 No Refills Instructions: TAKE DIRECTED. Comments: Last Taken: 10/05/16 Time: 940 AM Furosemide (Lasix) 20 MG TABLET 1 Tablet ORAL Every other day Qty = 15 No Refills Instructions: TAKE DIRECTED. Prednisone (Prednisone) 10 MG TABLET 0 ORAL TAPER Qty = 12 No Refills Instructions: Take 3 tablets x 2 days Take 2 tablets x 2 days Take 1 tablet x 2 days Comments: Last Taken: 10/05/16 Time: 935 AM Copies To: NERIS ABREU,SIVAN; EMELI ABREU,SHASHANK
[2016-10-05] MEDS ORDERED: LASIX20 M1 PO ×3 (13:05→14:51)
== END 2016-10-05 15:10 | DRG 140 ==
LOC: ERH 18:27 → 1NO 21:05 → ERHI 21:05 → ENRESERV 22:33 → ENTRNSPT 23:01 → 1NO 23:11 → CMPTRNSPT 10-02 08:01 → 1NO 10-03 08:15 → ENPENDDIS 10-05 13:20 → 1NO 10-05 15:10
PROVIDERS: Internal Medicine Cardiovascular Disease; Physician Assistant; Student in an Organized Health Care Education/Training Program; ADMIT Internal Medicine
DX: J44.0 Chronic obstructive pulmonary disease with (acute) lower respiratory infection (principal); J96.01 Acute respiratory failure with hypoxia; R60.0 Localized edema; F17.210 Nicotine dependence, cigarettes, uncomplicated; M32.8 Other forms of systemic lupus erythematosus; F41.9 Anxiety disorder, unspecified; Z91.14 Patient's other noncompliance with medication regimen; K21.9 Gastro-esophageal reflux disease without esophagitis; J18.9 Pneumonia, unspecified organism; J44.1 Chronic obstructive pulmonary disease with (acute) exacerbation; L03.115 Cellulitis of right lower limb; I27.2 Other secondary pulmonary hypertension; I50.9 Heart failure, unspecified; Z82.49 Family history of ischemic heart disease and other diseases of the circulatory system; M71.21 Synovial cyst of popliteal space [Baker], right knee; J96.02 Acute respiratory failure with hypercapnia; K59.00 Constipation, unspecified; L93.1 Subacute cutaneous lupus erythematosus; E87.4 Mixed disorder of acid-base balance
CPT/HCPCS: 1NP; 81001; 82436; 87040; 87070; 87086; 93005; 93010; 93306; 93970; 96374; 96375; J0456; J0696; J1644; J1650; J1940; J2930; J3490